=== PATIENT | male | born 1980 ===

== ENCOUNTER 2017-05-23 15:00 | Emergency (ER) | payer OTHER ==
--- NOTE | 2017-05-23 16:57 | C.PDOC ---
History Of Present Illness 36 year old male presents to Emergency Department for evaluation of foreign body in rectum. Patient states he inserted plastic spray bottle in the rectum last night, and the cap of the bottle was left behind while removing the bottle. Denies any other complaints at this time. Time Seen by Provider: 05/23/17 15:40 Chief Complaint (Nursing): GI Problem History Per: Patient History/Exam Limitations: no limitations Onset/Duration Of Symptoms: Days (1) Current Symptoms Are (Timing): Still Present Recent travel outside of the [place]: No Additional History Per: Patient Past Medical History Reviewed: Historical Data, Nursing Documentation, Vital Signs Vital Signs: Last Vital Signs Temp 97.4 F L 05/23/17 18:10 Pulse 72 05/23/17 18:10 Resp 16 05/23/17 18:10 BP 100/76 05/23/17 18:10 Pulse Ox 98 05/23/17 18:10 Family History: States: Unknown Family Hx - Social History Hx Alcohol Use: Yes Hx Substance Use: No - Immunization History Hx Tetanus Toxoid Vaccination: No Hx Influenza Vaccination: No Hx Pneumococcal Vaccination: No Review Of Systems Except As Marked, All Systems Reviewed And Found Negative. Constitutional: Negative for: Fever, Chills Cardiovascular: Negative for: Chest Pain, Palpitations Respiratory: Negative for: Shortness of Breath Gastrointestinal: Positive for: Other (foreign body in rectum). Negative for: Nausea, Vomiting, Abdominal Pain, Diarrhea Neurological: Negative for: Headache, Dizziness Physical Exam - Physical Exam Appears: Non-toxic, No Acute Distress Skin: Normal Color, Warm, Dry Head: Atraumatic, Normacephalic Eye(s): bilateral: Normal Inspection Oral Mucosa: Moist Neck: Normal ROM, Supple Chest: Symmetrical Cardiovascular: Rhythm Regular, No Murmur Respiratory: Normal Breath Sounds, No Rales, No Rhonchi, No Wheezing Gastrointestinal/Abdominal: Soft, No Tenderness Rectal: Rectal Tone (normal), Heme Positive (scant bleeding), No Tenderness, No Other (no foreign body palpated in rectal vault) Extremity: Bilateral: Atraumatic, Normal ROM Neurological/Psych: Oriented x3, Normal Speech Gait: Steady ED Course And Treatment O2 Sat by Pulse Oximetry: 97 (RA) Pulse Ox Interpretation: Normal Medical Decision Making Medical Decision Making: Plan: * Abdomen x-ray Progress note: XRay shows visible air in what is likely plastic cap from spray bottle measuring about [id number]. Case discussed with attending who recommend speaking with surgery. Spoke to Dr Campos who asked when patient ate last and bowel movement. Patient ate today and last bm was yesterday. Dr Campos asked that patient follow up in his office tomorrow at 10AM. He does not need admission at this time. Patient reevaluated and is resting comfortably in no distress. Discussed plan for discharge and instructed patient on follow up. He verbalized understanding. Disposition Discussed With Dr.: Fuentes Campos Doctor Will See Patient In The: Office Counseled Patient/Family Regarding: Diagnosis, Need For Followup - Disposition Referrals: Fuentes Campos MD [Staff Provider] - Disposition: HOME/ ROUTINE Disposition Time: 17:45 Condition: STABLE Additional Instructions: Please follow up with Dr Campos in his office Tomorrow 10am [facility] Por favor, siga con el Dr. Campos en tillman oficina Maana 10 a.m. [facility] Instructions: Rectal Foreign Body (ED) Forms: [employer] (Japanese) Print Language: NEPALESE - POA Present On Arrival: None - Clinical Impression Clinical Impression: Rectal foreign body - PA / JIG MAKER / Resident Statement MD/DO has reviewed & agrees with the documentation as recorded. - Scribe Statement The provider has reviewed the documentation as recorded by the Rakel Tran All medical record entries made by the Rakel were at my direction and personally dictated by me. I have reviewed the chart and agree that the record accurately reflects my personal performance of the history, physical exam, medical decision making, and the department course for this patient. I have also personally directed, reviewed, and agree with the discharge instructions and disposition.
[2017-05-23 18:11] VITALS: BP 100/76; PULSE 72; RESP 16; TEMP 97.4
[2017-05-23 18:48] VITALS: O2SAT 97
--- NOTE | 2017-05-24 09:50 | RAD ---
HISTORY: rectal foreign body COMPARISON: No prior. FINDINGS: BOWEL: There is a nonobstructive bowel gas pattern appreciated. No gross free intrarenal gas evident. No retained radiodense foreign body is identified including at the level of the rectum. There is a short tubular lucency in the upper rectum/distal sigmoid colon which may represent a radiolucent foreign body though this is not clear as this may represent simply gas in the lumen. CT can confirm. No intra-abdominal calcifications are appreciable. BONES: Small exostosis seen related to the lateral side of the right innominate bone. OTHER FINDINGS: None. IMPRESSION: No retained radiodense foreign bodies appreciated throughout the abdomen including the region of the rectum. A E lucency at the upper rectum/distal sigmoid colon may reflect a radiolucent retained foreign body but this is indeterminate given its gas like appearance. Please see discussion above.
== END 2017-05-23 18:10 | disposition home or self-care (01) ==
LOC: C.ER 15:00
DX: T18.5XXA Foreign body in anus and rectum, initial encounter (principal); X58.XXXA Exposure to other specified factors, initial encounter
CPT/HCPCS: 74000; 99284; G0328

== ENCOUNTER 2017-05-24 10:17 | Inpatient (IN) | payer OTHER ==
[2017-05-24] MEDS ORDERED: Sodium Chloride 0.9% 1,000 ML IV ONE (11:13)
[2017-05-24] MEDS ORDERED: Sodium Chloride 0.9% 1,000 ML ONE (11:29)
[2017-05-24 11:43] LABS: EOS # 0.4 K/uL (0.0-0.7); EOS % 3.9 % (0.0-4.0)
--- NOTE | 2017-05-24 11:45 | C.PDOC ---
History Of Present Illness 36 y/o male who was seen here yesterday after inserting an object in his rectum on monday. Patient was instructed to follow up with Dr Guillory this am but now c/o increased abdominal discomfort with no bowel movement prompting ED evaluation. Patient denies fever, chills, nausea, or vomiting. Time Seen by Provider: 05/24/17 10:32 Chief Complaint (Nursing): GI Problem History Per: Patient History/Exam Limitations: no limitations Onset/Duration Of Symptoms: Days (2) Current Symptoms Are (Timing): Still Present Severity: Mild Location Of Pain/Discomfort: Diffuse Quality Of Discomfort: "Pain" Associated Symptoms: denies: Fever, Chills, Nausea, Vomiting Recent travel outside of the [place]: No Additional History Per: Patient Past Medical History Reviewed: Historical Data, Nursing Documentation, Vital Signs Vital Signs: Last Vital Signs Temp 97.9 F 05/24/17 13:06 Pulse 63 05/24/17 13:06 Resp 17 05/24/17 13:06 BP 108/73 05/24/17 13:06 Pulse Ox 99 05/24/17 13:06 - Medical History PMH: No Chronic Diseases Surgical History: No Surg Hx Family History: States: Unknown Family Hx - Social History Hx Alcohol Use: Yes Hx Substance Use: No - Immunization History Hx Tetanus Toxoid Vaccination: No Hx Influenza Vaccination: No Hx Pneumococcal Vaccination: No Review Of Systems Except As Marked, All Systems Reviewed And Found Negative. Constitutional: Negative for: Fever, Chills Gastrointestinal: Positive for: Abdominal Pain, Other (No bowel movement). Negative for: Nausea, Vomiting Physical Exam - Physical Exam Appears: Non-toxic, No Acute Distress Skin: Warm, Dry Head: Atraumatic, Normacephalic Chest: Symmetrical Cardiovascular: Rhythm Regular, No Murmur Respiratory: Normal Breath Sounds, No Rales, No Rhonchi, No Wheezing Gastrointestinal/Abdominal: Soft, Tenderness (Diffuse) Neurological/Psych: Oriented x3, Normal Speech, Normal Cognition Gait: Steady ED Course And Treatment - Laboratory Results Result Diagrams: 05/24/17 17:06 05/24/17 17:06 O2 Sat by Pulse Oximetry: 97 (RA) Pulse Ox Interpretation: Normal Progress Note: Case discussed with Dr Alicea who request admission to [facility] Reassessment Condition: Unchanged - Physician Consult Information Physician Contacted: Fuentes Campos Outcome Of Conversation: admit to [facility] Medical Decision Making Medical Decision Making: Plans: * Blood labs * IV fluids * UA Dr. Campos notified and he will admit patient for [facility] surgery. Disposition Discussed With : Fuentes Campos Doctor Will See Patient In The: Hospital - Disposition Disposition: HOSPITALIZED Disposition Time: 12:00 Condition: STABLE - POA Present On Arrival: None - Clinical Impression Clinical Impression: Rectal foreign body - Scribe Statement The provider has reviewed the documentation as recorded by the Scribe Alexandra woodard All medical record entries made by the Scribe were at my direction and personally dictated by me. I have reviewed the chart and agree that the record accurately reflects my personal performance of the history, physical exam, medical decision making, and the department course for this patient. I have also personally directed, reviewed, and agree with the discharge instructions and disposition.
[2017-05-24 11:46] LABS: URINE BILIRUBIN NEGATIVE (NEGATIVE); URINE BLOOD 1+ (NEGATIVE); URINE COLOR Yellow (YELLOW); URINE GLUCOSE (UA) NORMAL (Normal); URINE KETONE NEGATIVE (NEGATIVE); URINE LEUKOCYTE ESTERASE NEG Leu/uL (Negative); URINE PROTEIN NEGATIVE (NEGATIVE); URINE UROBILINOGEN NORMAL mg/dL (0.2-1.0); WBC URINE < 1 /hpf (0-5)
[2017-05-24 11:48] LABS: BASO % 0.5 % (0.0-2.0); HEMATOCRIT 46.5 % (35.0-51.0); LYMPH # 1.8 K/uL (1.0-4.3); LYMPH % 16.7 % (20.0-40.0); MEAN CELL VOLUME 84.6 fL (80.0-94.0); MEAN CORPUSCULAR HEMOGLOBIN 30.6 pg (27.0-31.0); MEAN CORPUSCULAR HGB CONC 36.2 g/dL (33.0-37.0); MEAN PLATELET VOLUME 9.2 fL (7.2-11.7); MONO # 0.7 K/uL (0.0-0.8); MONO % 6.4 % (0.0-10.0); NRBC % 0.4 % (0.0-2.0); RED CELL DISTRIBUTION WIDTH 13.2 % (11.5-14.5); WHITE BLOOD COUNT 10.7 K/uL (4.8-10.8)
[2017-05-24 11:49] LABS: RBC URINE 1 /hpf (0-3)
[2017-05-24 11:54] LABS: CHLORIDE 101 mmol/L (98-107); POTASSIUM 3.9 mmol/L (3.6-5.2); SODIUM 139 mmol/L (132-148)
[2017-05-24 11:56] LABS: BILIRUBIN,TOTAL 0.6 mg/dL (0.2-1.3); GFR AFRICAN-AMERICAN > 60
[2017-05-24 11:57] LABS: ALB/GLOB RATIO 1.2 (1.0-2.1); ALKALINE PHOSPHATASE 81 U/L (38-126); ALT/SGPT 36 U/L (21-72); AST/SGOT 21 U/L (17-59); BLOOD UREA NITROGEN 10 mg/dL (9-20); CARBON DIOXIDE 25 mmol/L (22-30); GLUCOSE,RANDOM 92 mg/dL (75-110); TOTAL PROTEIN 8.6 g/dL (6.3-8.3)
[2017-05-24 11:58] LABS: CALCIUM 9.5 mg/dl (8.6-10.4)
[2017-05-24] MEDS ORDERED: Midazolam 2 MG/2 ML VIAL ONE ×2 (13:49→16:22)
[2017-05-24] MEDS ORDERED: Lactated Ringer's 1,000 ML IV ONE ×2 (13:50→15:20)
[2017-05-24] MEDS ORDERED: Lidocaine 1% Inj (20ml) ONE (13:56)
[2017-05-24] MEDS ORDERED: ceFAZolin IV 1 gm in Dextrose 1 GM/50 ML BAG IVPB ONE (13:56)
[2017-05-24] MEDS ORDERED: Bupivacaine HCl 0.25% PF (10 ml) Inj ONE (13:56)
[2017-05-24] MEDS ORDERED: metroNIDAZOLE IV 500 mg/100 ml 500 MG/100 ML BAG ONE (14:43)
[2017-05-24] MEDS: HYDROmorphone 0.5 mg/0.5 ml ISec IVP PRN ×5 (16:13→17:40)
[2017-05-24] MEDS ORDERED: HYDROmorphone 0.5 mg/0.5 ml ISec ONE ×2 (16:13→16:17)
[2017-05-24] MEDS ORDERED: Propofol 10 mg/ml Inj (20 ML) ONE (16:22)
[2017-05-24] MEDS: Morphine Monoject Barrel PCA 1mg/ml IV PRN (16:30)
[2017-05-24 17:11] LABS: BASO # 0.1 K/uL (0.0-0.2); BASO % 0.3 % (0.0-2.0); EOS # 0.3 K/uL (0.0-0.7); EOS % 1.6 % (0.0-4.0); HEMATOCRIT 45.6 % (35.0-51.0); LYMPH # 1.9 K/uL (1.0-4.3); MEAN CELL VOLUME 86.2 fL (80.0-94.0); MEAN CORPUSCULAR HEMOGLOBIN 29.5 pg (27.0-31.0); MEAN CORPUSCULAR HGB CONC 34.2 g/dL (33.0-37.0); MEAN PLATELET VOLUME 9.2 fL (7.2-11.7); MONO # 0.8 K/uL (0.0-0.8); MONO % 4.5 % (0.0-10.0); NRBC % 0.2 % (0.0-2.0); RED CELL DISTRIBUTION WIDTH 13.4 % (11.5-14.5)
[2017-05-24 17:18] LABS: WHITE BLOOD COUNT 17.5 K/uL (4.8-10.8)
[2017-05-24 17:28] LABS: CHLORIDE 104 mmol/L (98-107)
[2017-05-24 17:29] LABS: POTASSIUM 4.1 mmol/L (3.6-5.2); SODIUM 137 mmol/L (132-148)
[2017-05-24] MEDS: Dextrose 5%/0.45% NS 1,000 ML IV SCH (17:30)
[2017-05-24 17:31] LABS: ALB/GLOB RATIO 1.7 (1.0-2.1); ALKALINE PHOSPHATASE 80 U/L (38-126); ALT/SGPT 28 U/L (21-72); AST/SGOT 19 U/L (17-59); BILIRUBIN,TOTAL 0.5 mg/dL (0.2-1.3); BLOOD UREA NITROGEN 8 mg/dL (9-20); CARBON DIOXIDE 21 mmol/L (22-30); GFR AFRICAN-AMERICAN > 60; TOTAL PROTEIN 6.3 g/dL (6.3-8.3)
[2017-05-24 17:32] LABS: CALCIUM 8.1 mg/dl (8.6-10.4); GLUCOSE,RANDOM 106 mg/dL (75-110)
[2017-05-24] MEDS: Lactated Ringer's 1,000 ML IV SCH ×2 (18:30→21:18)
--- NOTE | 2017-05-24 19:17 | CP.PCM.CON ---
<Jonathan Mcintyre - Last Filed: 05/24/17 18:55> History of Present Illness - History of Present Illness History of Present Illness: Medicine Consult Note for Dr. Calero We are being consulted for medical management of this patient HPI: Patient is a 36M with no PMH that present to the ED sent from Dr. Hurley office for a foreign body in the rectum. Patient states that on Monday of this week he was drunk off of 4-5 Coron[place] when he stuck a Febreeze bottle in his rectum. The top/cap of the bottle became stuck and he presented to the ED on Monday. The ED examined the patient and sent him home with instructions to follow up with Dr. Campos in the morning. The patient went to Dr. Hurley office and he instructed the patient to return to the ED. The patient was then taken to the operating room. The patient had an exploratory lap with an ostomy. The patient states that this was a stupid thing to do and states he did it because "i dont know" and because he was curious. He has been inserting similar items into his rectum for 2 years but this is the first time it became stuck. He is not sure why he does these things. ROS: * Const: Denies WL * HEENT: History of a broken nose * Lungs: Denies * Heart: denies previous echo or cath * GI: Denies * Renal: denies * : Denies * Breast: Denies * MSK: Denies falls, back pain, RA, ambulates independently * Neuro: denies CVA, seizures, memory or weakness,. numbness. multiple sclerosis , Alzheimer, Myasthenia gravis * Endo: denies thyroid, DM, Adrenal problems * Psych: denies hospitalizations * Skin: Denies * Heme: Denies Easy bruising, anemia, leukemia, histroy of transfusions, clots, anticoagulation disorders * Oncology: denies history of cancer or immune problems * ID: MRSA, C.diff, HIV PMH: None PSH: exlap POD #0, wisdom teeth FH: None SH: 7 pack year history, drinks multiple beers once per weekend, denies illicit drug use Meds: none Allergies: none Review of Systems - Review of Systems All systems: reviewed and no additional remarkable complaints except (per hpi) Past Patient History - Past Medical History & Family History Past Medical History?: No - Past Social History Smoking Status: Light Smoker < 10 Cigarettes Daily - MUSCULOSKELETAL/RHEUMATOLOGICAL Hx Falls: No - PSYCHIATRIC Hx Substance Use: No - SURGICAL HISTORY Hx Surgeries: Yes - ANESTHESIA Hx Anesthesia: Yes Hx Anesthesia Reactions: No Hx Malignant Hyperthermia: No Has any member of the family had a problem w/ anesthesia?: No Meds Allergies/Adverse Reactions: Allergies Allergy/AdvReac Type Severity Reaction Status Date / Time No Known Allergies Allergy Verified 05/23/17 15:34 - Medications Medications: Current Medications Enoxaparin Sodium (Lovenox) 30 mg SC 1000,2200 SOLO Famotidine (Pepcid) 20 mg IVP Q12 SOLO Hydromorphone HCl (Dilaudid) 2 mg IVP Q4H PRN PRN Reason: pain Dextrose/Sodium Chloride (Dextrose 5%/0.45% Ns 1000 Ml) 1,000 mls @ 125 mls/hr IV .Q8H [facility] Last Admin: 05/24/17 17:30 Dose: 0 mls Lactated Ringer's (Lactated Ringer's) 1,000 mls @ 150 mls/hr IV .Q6H40M SOLO Cefazolin Sodium (Ancef) 1 gm in 50 mls @ 100 mls/hr IVPB Q8 SOLO Metronidazole (Flagyl) 250 mg in 50 mls @ 100 mls/hr IVPB Q8H [facility] Stop: 05/29/17 23:01 Morphine Sulfate/Sodium Chloride (Morphine [employer] Monoject Barrel) 30 mg IV Q4H PRN; Protocol PRN Reason: Pain, severe (8-10) Stop: 05/25/17 16:40 Last Admin: 05/24/17 16:30 Dose: 30 mg Ondansetron HCl (Zofran Inj) 4 mg IV Q6 PRN PRN Reason: Nausea/Vomiting Physical Exam - Constitutional Appears: Well, Non-toxic, No Acute Distress - Head Exam Head Exam: ATRAUMATIC, NORMAL INSPECTION, NORMOCEPHALIC - Eye Exam Eye Exam: EOMI Pupil Exam: NORMAL ACCOMODATION - ENT Exam ENT Exam: Mucous Membranes Moist - Respiratory Exam Respiratory Exam: Clear to Auscultation Bilateral, NORMAL BREATHING PATTERN - Cardiovascular Exam Cardiovascular Exam: REGULAR RHYTHM - GI/Abdominal Exam GI & Abdominal Exam: Soft, Tenderness (diffuse tenderness to palpation, midline incision extending from near the xyphoid to the pubis. dressing clean, dry and intact, ostomy is pink and healthy appearing. bright red blood in colostomy bag) . absent: Distended - Extremities Exam Extremities exam: Negative for: joint swelling, tenderness - Back Exam Back exam: absent: CVA tenderness (L), CVA tenderness (R) - Neurological Exam Neurological exam: Alert, Oriented x3 - Psychiatric Exam Psychiatric exam: Normal Affect, Normal Mood - Skin Skin Exam: Dry, Intact, Normal Color, Warm Results - Vital Signs Recent Vital Signs: Last Vital Signs Temp 97.3 F L 05/24/17 18:27 Pulse 70 05/24/17 18:27 Resp 20 05/24/17 18:27 BP 120/76 05/24/17 18:27 Pulse Ox 95 05/24/17 18:27 - Labs Result Diagrams: 05/24/17 17:06 05/24/17 17:06 Labs: Laboratory Results - last 24 hr 05/24/17 05/24/17 05/24/17 11:39 11:39 11:39 WBC 10.7 RBC 5.49 Hgb 16.8 Hct 46.5 MCV 84.6 MCH 30.6 MCHC 36.2 RDW 13.2 Plt Count 300 MPV 9.2 Neut % (Auto) 72.5 Lymph % (Auto) 16.7 L [place] % (Auto) 6.4 Eos % (Auto) 3.9 Baso % (Auto) 0.5 Neut # 7.7 H Lymph # 1.8 Dewey # 0.7 Eos # 0.4 Baso # 0.0 Sodium 139 Potassium 3.9 Chloride 101 Carbon Dioxide 25 Anion Gap 17 BUN 10 Creatinine 0.8 Est GFR ( Amer) > 60 Est GFR (Non-Af Amer) > 60 POC Glucose (mg/dL) Random Glucose 92 Calcium 9.5 Total Bilirubin 0.6 AST 21 ALT 36 Alkaline Phosphatase 81 Total Protein 8.6 H Albumin 4.7 Globulin 3.9 Albumin/Globulin Ratio 1.2 Urine Color Yellow Urine Clarity Clear Urine pH 5.0 Ur Specific [place] 1.013 Urine Protein Negative Urine Glucose (UA) Normal Urine Ketones Negative Urine Blood 1+ H Urine Nitrate Negative Urine Bilirubin Negative Urine Urobilinogen Normal Ur Leukocyte Esterase Neg Urine WBC (Auto) < 1 Urine RBC (Auto) 1 05/24/17 05/24/17 05/24/17 12:17 17:06 17:06 WBC 17.5 H D RBC 5.29 Hgb 15.6 Hct 45.6 MCV 86.2 MCH 29.5 MCHC 34.2 RDW 13.4 Plt Count 265 MPV 9.2 Neut % (Auto) 82.6 H Lymph % (Auto) 11.0 L [place] % (Auto) 4.5 Eos % (Auto) 1.6 Baso % (Auto) 0.3 Neut # 14.4 H Lymph # 1.9 Dewey # 0.8 Eos # 0.3 Baso # 0.1 Sodium 137 Potassium 4.1 Chloride 104 Carbon Dioxide 21 L Anion Gap 16 BUN 8 L Creatinine 0.7 L Est GFR ( Amer) > 60 Est GFR (Non-Af Amer) > 60 POC Glucose (mg/dL) 82 Random Glucose 106 Calcium 8.1 L Total Bilirubin 0.5 AST 19 ALT 28 Alkaline Phosphatase 80 Total Protein 6.3 Albumin 4.0 Globulin 2.4 Albumin/Globulin Ratio 1.7 Urine Color Urine Clarity Urine pH Ur Specific [place] Urine Protein Urine Glucose (UA) Urine Ketones Urine Blood Urine Nitrate Urine Bilirubin Urine Urobilinogen Ur Leukocyte Esterase Urine WBC (Auto) Urine RBC (Auto) Assessment & Plan - Assessment and Plan (Free Text) Assessment: Ex-Lap FB Removal + Ostomy * POD #0 * NPO * Ancef 1g Q8 * Flagyl 250 IV Q8 * Dilaudid 2mg IV Q4 PRN * Morphine TILE CONDUIT LAYER * Psych ([place]) PPX * LR @150 * Zofran 4mg IV Q6 * ambulate * pepcid <Dottie Calero V - Last Filed: 05/24/17 21:10> Meds - Medications Medications: Current Medications Enoxaparin Sodium (Lovenox) 30 mg SC 1000,2200 SOLO Famotidine (Pepcid) 20 mg IVP Q12 SOLO Hydromorphone HCl (Dilaudid) 2 mg IVP Q4H PRN PRN Reason: pain Dextrose/Sodium Chloride (Dextrose 5%/0.45% Ns 1000 Ml) 1,000 mls @ 125 mls/hr IV .Q8H SOLO Last Admin: 05/24/17 17:30 Dose: 0 mls Lactated Ringer's (Lactated Ringer's) 1,000 mls @ 150 mls/hr IV .Q6H40M SOLO Cefazolin Sodium (Ancef) 1 gm in 50 mls @ 100 mls/hr IVPB Q8 SOLO Metronidazole (Flagyl) 250 mg in 50 mls @ 100 mls/hr IVPB Q8H SOLO Stop: 05/29/17 23:01 Morphine Sulfate/Sodium Chloride (Morphine [employer] Monoject Barrel) 30 mg IV Q4H PRN; Protocol PRN Reason: Pain, severe (8-10) Stop: 05/25/17 16:40 Last Admin: 05/24/17 16:30 Dose: 30 mg Ondansetron HCl (Zofran Inj) 4 mg IV Q6 PRN PRN Reason: Nausea/Vomiting Pneumococcal Polyvalent Vaccine (Pneumovax 23 Vaccine) 0.5 ml IM .ONCE ONE Stop: 05/25/17 10:01 Results - Vital Signs Recent Vital Signs: Last Vital Signs Temp 97.3 F L 05/24/17 18:27 Pulse 70 05/24/17 18:27 Resp 20 05/24/17 18:27 BP 120/76 05/24/17 18:27 Pulse Ox 95 05/24/17 18:27 - Labs Result Diagrams: 05/24/17 17:06 05/24/17 17:06 Labs: Laboratory Results - last 24 hr 05/24/17 05/24/17 05/24/17 11:39 11:39 11:39 WBC 10.7 RBC 5.49 Hgb 16.8 Hct 46.5 MCV 84.6 MCH 30.6 MCHC 36.2 RDW 13.2 Plt Count 300 MPV 9.2 Neut % (Auto) 72.5 Lymph % (Auto) 16.7 L [place] % (Auto) 6.4 Eos % (Auto) 3.9 Baso % (Auto) 0.5 Neut # 7.7 H Lymph # 1.8 Dewey # 0.7 Eos # 0.4 Baso # 0.0 Sodium 139 Potassium 3.9 Chloride 101 Carbon Dioxide 25 Anion Gap 17 BUN 10 Creatinine 0.8 Est GFR ( Amer) > 60 Est GFR (Non-Af Amer) > 60 POC Glucose (mg/dL) Random Glucose 92 Calcium 9.5 Total Bilirubin 0.6 AST 21 ALT 36 Alkaline Phosphatase 81 Total Protein 8.6 H Albumin 4.7 Globulin 3.9 Albumin/Globulin Ratio 1.2 Urine Color Yellow Urine Clarity Clear Urine pH 5.0 Ur Specific [place] 1.013 Urine Protein Negative Urine Glucose (UA) Normal Urine Ketones Negative Urine Blood 1+ H Urine Nitrate Negative Urine Bilirubin Negative Urine Urobilinogen Normal Ur Leukocyte Esterase Neg Urine WBC (Auto) < 1 Urine RBC (Auto) 1 05/24/17 05/24/17 05/24/17 12:17 17:06 17:06 WBC 17.5 H D RBC 5.29 Hgb 15.6 Hct 45.6 MCV 86.2 MCH 29.5 MCHC 34.2 RDW 13.4 Plt Count 265 MPV 9.2 Neut % (Auto) 82.6 H Lymph % (Auto) 11.0 L [place] % (Auto) 4.5 Eos % (Auto) 1.6 Baso % (Auto) 0.3 Neut # 14.4 H Lymph # 1.9 Dewey # 0.8 Eos # 0.3 Baso # 0.1 Sodium 137 Potassium 4.1 Chloride 104 Carbon Dioxide 21 L Anion Gap 16 BUN 8 L Creatinine 0.7 L Est GFR ( Amer) > 60 Est GFR (Non-Af Amer) > 60 POC Glucose (mg/dL) 82 Random Glucose 106 Calcium 8.1 L Total Bilirubin 0.5 AST 19 ALT 28 Alkaline Phosphatase 80 Total Protein 6.3 Albumin 4.0 Globulin 2.4 Albumin/Globulin Ratio 1.7 Urine Color Urine Clarity Urine pH Ur Specific [place] Urine Protein Urine Glucose (UA) Urine Ketones Urine Blood Urine Nitrate Urine Bilirubin Urine Urobilinogen Ur Leukocyte Esterase Urine WBC (Auto) Urine RBC (Auto) Attending/Attestation - Attestation I have personally seen and examined this patient.: Yes I have fully participated in the care of the patient.: Yes I have reviewed all pertinent clinical information: Yes Notes (Text): Patient seen, examined and case discussed with day-time resident. patient seen in [facility] [address] around 6:30PM on 05/24/17. Patient is post-operative for exploratory ex-lap ostomy given foreign body insertion (cap of Frebreeze bottle). Patient seen with Morphine TILE CONDUIT LAYER in hand. Patient reports for the past 2 years, he inserts foreign objects in his anus. Patient unable to described why he does this. Patient acklnowledges this is not rational behavior. I inquired to patient if he does this for pleasure or any reason in particular but does not state. Patient reports he does drink once week (usually on Mondays) to get drunk. patient reports he lives with friends but his family is in [place]. patient denies depression, denies SI, denies HI at this time. Patient does not report symptoms of alcohol withdrawal at this time. Patient reports his major complaint is abdominal pain which is expected in light of surgery he is completed earlier today. Medicine is on consult for medical management. Recommended psychiatry consult given abnormal behavior in regards to repeat foreign body insertion, alcohol abuse. Surgery decision making including preoperative/intraoperative and postoperative is per surgery, Dr. Campos. Operative note not yet available at this time. Assessment/Plan 1) Foreign Body Insertion Ex-Lap FB Removal + Ostomy * General surgery (Dr. Campos)-primary and general surgery on the case * Surgery decision making including preoperative/intraoperative and postoperative is per surgery, Dr. Campos. Operative note not yet available at this time. * Anticoagulation per surgery * Pain management per surgery * Orders per surgery include: * POD #0 * NPO * Ancef 1g Q8H (active since 05/24/17) * Flagyl 250 IV Q8H (active since 05/24/17) * Dilaudid 2mg IV Q4 PRN * Morphine TILE CONDUIT LAYER for pain * Dilaudid 2mg IV Q 4H PRN pain * Zofran 4mg IV Q 6hr PRN nausea 2) Alcohol Use; Abnormal Behavior * Ativan PRN for alcohol withdrawal * Psychiatry consult recommended for given repeat foreign body insertion, alcohol use, possible depression * Pastoral care consult 3) Prophylactic care * Orders per surgery include: * POD #0 * NPO * Ancef 1g Q8H (active since 05/24/17) * Flagyl 250 IV Q8H (active since 05/24/17) * Dilaudid 2mg IV Q4 PRN * Morphine TILE CONDUIT LAYER for pain * Dilaudid 2mg IV Q 4H PRN pain * Zofran 4mg IV Q 6hr PRN nausea
[2017-05-24] MEDS: Enoxaparin 30 mg Syringe SC SCH (21:28)
[2017-05-24] MEDS: ceFAZolin 1 gm FROZEN Premix 1 GM/50 ML ML IVPB SCH (21:28)
[2017-05-24] MEDS ORDERED: metroNIDAZOLE IV 500 mg/100 ml 250 MG in Premixed IV 1 EA IVPB SCH (22:00)
[2017-05-24] MEDS: metroNIDAZOLE IV 250mg/50 ml 250 MG/50 ML BAG IVPB SCH (22:19)
--- NOTE | 2017-05-24 22:58 | OP ---
PROCEDURE DATE: 05/24/2017 PREOPERATIVE DIAGNOSIS: Foreign body of the rectosigmoid. POSTOPERATIVE DIAGNOSIS: Foreign body of the rectosigmoid. PROCEDURES PERFORMED: 1. Attempted transrectal removal of foreign body of the rectosigmoid. 2. Exploratory laparotomy, removal of rectosigmoid foreign body with diverting sigmoid colostomy. SURGEON: Dr. Campos. EXPORT MANAGER: Dr. Conteh. TYPE OF ANESTHESIA: General endotracheal. ESTIMATED BLOOD LOSS: 75 mL. POSTOPERATIVE CONDITION: Stable. INDICATIONS FOR SURGERY: A 36-year-old male who presented to emergency room last night with a complaint that he placed a foreign body in his rectum. I received a call from the ER, I was told that the patient had placed a "bottle cap" in his rectum and was in need of treatment. I instructed them to have the patient follow up in my office this morning at 10:00 a.m. for a possible office procedure to remove a "bottle cap" from his rectum. He subsequently presented; however, I was in emergency surgery at the time and asked him to go to the emergency room. He went to the emergency room and since he was in the hospital, he was scheduled to be taken to the operating room to removal under general anesthesia. GROSS FINDINGS: The patient had a aerosol cap which had been placed with the smooth side proximally and sharp edge of the bottle cap distally. As a result, the aerosol bottle cap was not able to be advanced distally so that it can be delivered through the rectum. Upon initial anoscopy, it was found to be near the rectosigmoid; however, I was able to grab one edge with a sponge stick and tried to milk it down so it could be removed through the anus. However, it was wedged in the mucosa and any attempts to move it down resulted cutting from the sharp edges of the mucosa which had coalesced around the edges. Many attempts were made including placing 2 towel clips on the edges, but we were unable to advance it any distance whatsoever. Also, as a result of manipulating it, it kept getting squeezed more proximally until a point it was nearly into the sigmoid colon. At this point, it was felt the safest way to remove it would be through an abdominal wall incision. The patient was re-prepped and draped and the abdomen was entered through a lower midline incision. The bottle cap was felt at the peritoneal reflection with the distal edges of it being just above the peritoneal reflection. Decision was made to "milk the bottle cap" into the sigmoid so that the sigmoid could be opened and then converted into a diverting colostomy through the same incision. This was done and it was fairly easily "milked" proximally to the sigmoid and then, a transverse colotomy was made into sigmoid and the bottle cap was then easily removed. The stool was then cleansed from the edge and the abdomen was irrigated with chlorhexidine gluconate solution; this was followed by saline irrigation. Next, the colotomy was closed with a running 2-0 chromic suture. The sigmoid was further mobilized along its peritoneal attachment so that a diverting colostomy would be easily brought through the abdominal wall. Next, the abdomen was again irrigated with calcium gluconate followed by saline. A longitudinal colostomy incision was made in the left lower quadrant and the sigmoid colon where the colotomy suture was brought through the wound and a colostomy bar was placed beneath it. Final irrigation of the abdomen was carried out and the fascia was closed with a running PDS suture. The overlying skin was closed with robbi. The colostomy was then matured using interrupted 3-0 Monocryl suture into the subcuticular layer of the skin. The patient tolerated the procedure well, returned to recovery room in stable condition. Fuentes Campos MD
[2017-05-25] MEDS: Dextrose 5%/0.45% NS 1,000 ML IV SCH ×3 (02:45→11:27)
[2017-05-25] MEDS: Morphine Monoject Barrel PCA 1mg/ml IV PRN (04:44)
[2017-05-25] MEDS: ceFAZolin 1 gm FROZEN Premix 1 GM/50 ML ML IVPB SCH ×3 (05:43→21:30)
[2017-05-25] MEDS: Lactated Ringer's 1,000 ML IV SCH ×2 (05:54→20:23)
[2017-05-25] MEDS: metroNIDAZOLE IV 250mg/50 ml 250 MG/50 ML BAG IVPB SCH ×3 (06:06→22:54)
--- NOTE | 2017-05-25 09:24 | CP.PCM.PN ---
Subjective - Date & Time of Evaluation Date of Evaluation: 05/25/17 Time of Evaluation: 09:23 - Subjective Subjective: Medicine note for Dr. Calero HPI: Patient seen and examined at bedside. Pain is controlled. No nausea or vomiting. Not passing gas. No BM. No fevers or chills. No other complaints at this time Objective - Vital Signs/Intake and Output Vital Signs (last 24 hours): Temp Pulse Resp BP Pulse Ox 97.8 F 94 H 20 104/65 96 05/25/17 00:00 05/25/17 00:00 05/25/17 00:00 05/25/17 00:00 05/25/17 00:00 Intake and Output: 05/25/17 05/25/17 06:59 18:59 Output Total 700 Balance -700 - Medications Medications: Current Medications Enoxaparin Sodium (Lovenox) 30 mg SC 1000,2200 [facility] Last Admin: 05/24/17 21:28 Dose: 30 mg Famotidine (Pepcid) 20 mg IVP Q12 [facility] Last Admin: 05/24/17 21:28 Dose: 20 mg Hydromorphone HCl (Dilaudid) 2 mg IVP Q4H PRN PRN Reason: pain Last Admin: 05/25/17 02:40 Dose: 2 mg Dextrose/Sodium Chloride (Dextrose 5%/0.45% Ns 1000 Ml) 1,000 mls @ 125 mls/hr IV .Q8H [facility] Last Admin: 05/25/17 02:45 Dose: 125 mls/hr Lactated Ringer's (Lactated Ringer's) 1,000 mls @ 150 mls/hr IV .Q6H40M [facility] Last Admin: 05/25/17 05:54 Dose: Not Given Cefazolin Sodium (Ancef) 1 gm in 50 mls @ 100 mls/hr IVPB Q8 [facility] Last Admin: 05/25/17 05:43 Dose: 100 mls/hr Metronidazole (Flagyl) 250 mg in 50 mls @ 100 mls/hr IVPB Q8H [facility] Stop: 05/29/17 23:01 Last Admin: 05/25/17 06:06 Dose: 100 mls/hr Lorazepam (Ativan) 1 mg IVP Q6H PRN PRN Reason: Symptoms of alcohol withdrawl Morphine Sulfate/Sodium Chloride (Morphine Digital Computer Operator Monoject Barrel) 30 mg IV Q4H PRN; Protocol PRN Reason: Pain, severe (8-10) Stop: 05/25/17 16:40 Last Admin: 05/25/17 04:44 Dose: 30 mg Ondansetron HCl (Zofran Inj) 4 mg IV Q6 PRN PRN Reason: Nausea/Vomiting Pneumococcal Polyvalent Vaccine (Pneumovax 23 Vaccine) 0.5 ml IM .ONCE ONE Stop: 05/25/17 10:01 - Labs Labs: 05/24/17 17:06 05/24/17 17:06 - Skin Additional comments: - Constitutional Appears: Well, Non-toxic, No Acute Distress - Head Exam Head Exam: ATRAUMATIC, NORMAL INSPECTION, NORMOCEPHALIC - Eye Exam Eye Exam: EOMI Pupil Exam: NORMAL ACCOMODATION - ENT Exam ENT Exam: Mucous Membranes Moist - Respiratory Exam Respiratory Exam: Clear to Auscultation Bilateral, NORMAL BREATHING PATTERN - Cardiovascular Exam Cardiovascular Exam: REGULAR RHYTHM - GI/Abdominal Exam GI & Abdominal Exam: Soft, Tenderness (diffuse tenderness to palpation, midline incision extending from near the xyphoid to the pubis. dressing clean, dry and intact, ostomy is pink and healthy appearing. bright red blood in colostomy bag) . absent: Distended - Extremities Exam Extremities exam: Negative for: joint swelling, tenderness - Back Exam Back exam: absent: CVA tenderness (L), CVA tenderness (R) - Neurological Exam Neurological exam: Alert, Oriented x3 - Psychiatric Exam Psychiatric exam: Normal Affect, Normal Mood - Skin Skin Exam: Dry, Intact, Normal Color, Warm Assessment and Plan - Assessment and Plan (Free Text) Assessment: Ex-Lap FB Removal + Ostomy * POD #1 * NPO * Ancef 1g Q8 * Flagyl 250 IV Q8 * Dilaudid 2mg IV Q4 PRN * Morphine ATTRACTIONS ASSOCIATE * Psych ([place]) Alcohol Use, Abnormal Behavior * Ativan 1 IV Q6 PRN for w/d symptoms * Psych ([facility]) PPX * LR @150 * Zofran 4mg IV Q6 * ambulate * pepcid
[2017-05-25] MEDS ORDERED: Influenza Vaccine 60 mcg/0.5 mL SYR (4YR UP) IM ONE (10:00)
[2017-05-25] MEDS ORDERED: Pneumococcal 23-Valent Vaccine IM ONE (10:00)
[2017-05-25] MEDS: Enoxaparin 30 mg Syringe SC SCH ×2 (10:24→22:54)
--- NOTE | 2017-05-25 11:16 | PCM.PSYCH ---
Initial Psychiatric Evaluation - Initial Psychiatric Evaluation Type of Admission: Voluntary Legal Status: Capacity Chief Complaint (in patient's own words): "I'm in pain" History of Present Illness and Precipitating Events: The pt is seen, chart reviewed and case discussed. Consultation was requested for patient's risky behavior. This is a 36-year-old single, [place], male with no children. 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 He is here because of a foreign object in his rectum. He was seen after the procedure and had some pain and does see was a poor historian. He reported that he had done it multiple times in the past including using sex toys with a partner. Other than anxiety related to the incident and current health situation (pain and other complications) he denies other psychiatric symptoms: No suicidal/homicidal ideation, no AVH/delusions, no obsessions/ compulsions and no manic symptoms. He also denies being depressed and states he feels okay. He denies drug use but smokes 10 cigarettes a day and he drinks couple of times a week. He reported that during that incident he was intoxicated. He also denies other risk taking behavior. Past psych history: Denies Medical history: Denies Family psych history: Denies Current Medications: Active Medications Generic Name Dose Route Start Last Admin Trade Name Freq PRN Reason Stop Dose Admin Enoxaparin Sodium 30 mg 05/24/17 22:00 05/25/17 10:24 Lovenox SC 30 mg 1000,2200 [facility] Administration Famotidine 20 mg 05/24/17 22:00 05/25/17 10:24 Pepcid IVP 20 mg Q12 [facility] Administration Hydromorphone HCl 2 mg 05/24/17 15:58 05/25/17 02:40 Dilaudid IVP 2 mg Q4H PRN Administration pain Dextrose/Sodium Chloride 1,000 mls @ 125 mls/hr 05/24/17 16:00 05/25/17 02:45 Dextrose 5%/0.45% Ns 1000 Ml IV 125 mls/hr .Q8H [facility] Administration Lactated Ringer's 1,000 mls @ 150 mls/hr 05/24/17 16:15 05/25/17 05:54 Lactated Ringer's IV Not Given .Q6H40M [facility] Cefazolin Sodium 1 gm in 50 mls @ 100 mls/hr 05/24/17 22:00 05/25/17 05:43 Ancef IVPB 100 mls/hr Q8 [facility] Administration Metronidazole 250 mg in 50 mls @ 100 mls/hr 05/24/17 23:00 05/25/17 06:06 Flagyl IVPB 05/29/17 23:01 100 mls/hr Q8H [facility] Administration Lorazepam 1 mg 05/24/17 21:10 Ativan IVP Q6H PRN Symptoms of alcohol withdrawl Morphine Sulfate/Sodium Chloride 30 mg 05/24/17 16:39 05/25/17 04:44 Morphine Frontend Engineer Monoject Barrel IV 05/25/17 16:40 30 mg Q4H PRN Administration Pain, severe (8-10) Protocol Ondansetron HCl 4 mg 05/24/17 15:58 Zofran Inj IV Q6 PRN Nausea/Vomiting Past Psychiatric History - Past Psychiatric History Previous Treatment History: None Pertinent Medical Hx (Current Medical&Sleep Prob, Allergies): Allergies Allergy/AdvReac Type Severity Reaction Status Date / Time No Known Allergies Allergy Verified 05/23/17 15:34 No Known Home Med 05/23/17 Review of Systems - Neurological Neurological: UNREMARKABLE - Psychiatric Psychiatric: Abnormal Sleep Pattern, Anxiety. absent: Depression, Hallucinations, Homicidal Ideation, Suicidal Ideation Mental Status Examination - Personal Presentation Personal Presentation: Looks stated age - Affect Affect: Constricted - Motor Activity Motor Activity: Calm - Reliability in Providing Information Reliability in Providing Information: Good - Speech Speech: Organized - Mood Mood: Anxious - Formal Thought Process Formal Thought Process: No Impairment - Cognitive Functions Orientation: Person, Place, Situation, Time Sensorium: Alert Attention/Concentration: Attentive Estimate of Intelligence: Average Judgement: Imparied, as evidence by: Poor judgement Memory: Recent intact, as evidence by: Ability to recall events of the day, Remote intact, as evidenced by: Abilit to recall sig. life events - Risk Risk: Diminished functioning - Strength & Assets Inventory Strength & Assets Inventory: Cooperative - Limitations Limitations: Living alone DSM 5 DX - DSM 5 DSM 5 Diagnosis: Adjustment d/o with anxiety Alcohol use d/o - unspecified severity - Recommended/Plan of Treatment Treatment Recommendations and Plan of Treatment: No need for psych meds other than prn's Support and psychoed given How to control risky bhv discussed Please contact psych as needed We will sign off 32 min
--- NOTE | 2017-05-25 13:16 | PN ---
DATE: 05/25/2017 SUBJECTIVE: The patient is resting comfortably in bed. He is one day status post a laparotomy to remove foreign body from his sigmoid colon. A diverting colostomy was then performed with the affected area of the sigmoid. Today, he is resting comfortably in bed. PHYSICAL EXAMINATION: VITAL SIGNS: His temperature is 98.6, pulse rate 89, blood pressure 108/74 and respiratory rate is 20. GENERAL: He is in no acute distress. ABDOMEN: He has a clean, dry dressing. Colostomy has serosanguineous drainage. There were scant absent bowel sounds. LABORATORY DATA: His laboratories today have not been drawn. IMPRESSION: Stable status post laparotomy for a foreign body of the colon. He will continue to have IV fluids and be kept n.p.o. except ice chips until his bowel function returns. He will stay on antibiotics for another 48 hours. Fuentes Campos MD
[2017-05-25 14:54] LABS: BASO % 0.3 % (0.0-2.0); EOS # 0.3 K/uL (0.0-0.7); EOS % 2.4 % (0.0-4.0); HEMATOCRIT 43.2 % (35.0-51.0); LYMPH # 1.8 K/uL (1.0-4.3); LYMPH % 13.1 % (20.0-40.0); MEAN CELL VOLUME 85.8 fL (80.0-94.0); MEAN CORPUSCULAR HEMOGLOBIN 29.6 pg (27.0-31.0); MEAN CORPUSCULAR HGB CONC 34.5 g/dL (33.0-37.0); MEAN PLATELET VOLUME 10.1 fL (7.2-11.7); MONO # 0.7 K/uL (0.0-0.8); MONO % 5.3 % (0.0-10.0); RED CELL DISTRIBUTION WIDTH 13.1 % (11.5-14.5); WHITE BLOOD COUNT 14.1 K/uL (4.8-10.8)
[2017-05-25 15:18] LABS: CHLORIDE 99 mmol/L (98-107); POTASSIUM 3.3 mmol/L (3.6-5.2); SODIUM 131 mmol/L (132-148)
[2017-05-25 15:21] LABS: ALB/GLOB RATIO 1.5 (1.0-2.1); ALKALINE PHOSPHATASE 70 U/L (38-126); ALT/SGPT 35 U/L (21-72); AST/SGOT 36 U/L (17-59); BILIRUBIN,TOTAL 1.1 mg/dL (0.2-1.3); BLOOD UREA NITROGEN 5 mg/dL (9-20); CALCIUM 8.3 mg/dl (8.6-10.4); CARBON DIOXIDE 22 mmol/L (22-30); GFR AFRICAN-AMERICAN > 60; GLUCOSE,RANDOM 80 mg/dL (75-110); TOTAL PROTEIN 6.3 g/dL (6.3-8.3)
[2017-05-25] MEDS: Potassium Ch 20mEq in D5-1/2NS 1,000 ML IV SCH (17:22)
[2017-05-25] MEDS ORDERED: HYDROmorphone 1 mg/ml ISec IVP ONE (20:23)
[2017-05-26] MEDS: Lactated Ringer's 1,000 ML IV SCH ×2 (02:41→20:42)
[2017-05-26] MEDS: Potassium Ch 20mEq in D5-1/2NS 1,000 ML IV SCH ×4 (02:51→15:51)
[2017-05-26] MEDS: ceFAZolin 1 gm FROZEN Premix 1 GM/50 ML ML IVPB SCH ×3 (05:35→21:35)
[2017-05-26] MEDS: metroNIDAZOLE IV 250mg/50 ml 250 MG/50 ML BAG IVPB SCH ×3 (06:25→22:22)
[2017-05-26] MEDS: Enoxaparin 30 mg Syringe SC SCH ×3 (09:42→21:41)
[2017-05-26 14:09] LABS: BASO % 0.2 % (0.0-2.0); EOS # 0.1 K/uL (0.0-0.7); EOS % 1.1 % (0.0-4.0); HEMATOCRIT 41.5 % (35.0-51.0); LYMPH # 1.1 K/uL (1.0-4.3); LYMPH % 9.5 % (20.0-40.0); MEAN CELL VOLUME 85.6 fL (80.0-94.0); MEAN CORPUSCULAR HEMOGLOBIN 30.1 pg (27.0-31.0); MEAN CORPUSCULAR HGB CONC 35.1 g/dL (33.0-37.0); MEAN PLATELET VOLUME 10.1 fL (7.2-11.7); MONO # 0.8 K/uL (0.0-0.8); MONO % 7.1 % (0.0-10.0); PLATELET COUNT 239 K/uL (130-400); RED CELL DISTRIBUTION WIDTH 12.8 % (11.5-14.5); WHITE BLOOD COUNT 11.6 K/uL (4.8-10.8)
[2017-05-26 14:14] LABS: CHLORIDE 100 mmol/L (98-107); POTASSIUM 3.8 mmol/L (3.6-5.2); SODIUM 131 mmol/L (132-148)
[2017-05-26 14:16] LABS: GFR AFRICAN-AMERICAN > 60
[2017-05-26 14:17] LABS: ALKALINE PHOSPHATASE 78 U/L (38-126); ALT/SGPT 34 U/L (21-72); AST/SGOT 42 U/L (17-59); BILIRUBIN,TOTAL 0.7 mg/dL (0.2-1.3); BLOOD UREA NITROGEN 5 mg/dL (9-20); CALCIUM 8.8 mg/dl (8.6-10.4); CARBON DIOXIDE 20 mmol/L (22-30); GLUCOSE,RANDOM 91 mg/dL (75-110); TOTAL PROTEIN 7.6 g/dL (6.3-8.3)
[2017-05-26 14:46] LABS: EOSINOPHIL 2 % (0-4); LARGE PLATELETS PRESENT; NEUTROPHIL 79 % (50-75); REACTIVE LYMPHOCYTES 1 % (0-0); TOTAL CELLS COUNTED 100
--- NOTE | 2017-05-26 21:25 | CP.PCM.PN ---
Subjective - Date & Time of Evaluation Date of Evaluation: 05/26/17 Time of Evaluation: 10:00 - Subjective Subjective: Patient has been seen and examined. No overnight events reported. Patient still has not had bowel movement. Patient has had a slight amount of flatulence. He denies any fever, chills, chest pain, sob, abdominal pain ( except at gastrostomy site) Objective - Vital Signs/Intake and Output Vital Signs (last 24 hours): Temp Pulse Resp BP Pulse Ox 97.9 F 84 20 110/77 97 05/26/17 16:24 05/26/17 16:24 05/26/17 16:24 05/26/17 16:24 05/26/17 16:24 Intake and Output: 05/26/17 05/27/17 18:59 06:59 Intake Total 800 Output Total 800 Balance 0 - Medications Medications: Current Medications Enoxaparin Sodium (Lovenox) 30 mg SC 1000,2200 [facility] Last Admin: 05/26/17 09:42 Dose: 30 mg Famotidine (Pepcid) 20 mg IVP Q12 [facility] Last Admin: 05/26/17 09:43 Dose: 20 mg Hydromorphone HCl (Dilaudid) 2 mg IVP Q4H PRN PRN Reason: pain Last Admin: 05/26/17 17:48 Dose: 2 mg Lactated Ringer's (Lactated Ringer's) 1,000 mls @ 150 mls/hr IV .Q6H40M [facility] Last Admin: 05/26/17 20:42 Dose: Not Given Cefazolin Sodium (Ancef) 1 gm in 50 mls @ 100 mls/hr IVPB Q8 [facility] Last Admin: 05/26/17 14:07 Dose: 100 mls/hr Metronidazole (Flagyl) 250 mg in 50 mls @ 100 mls/hr IVPB Q8H [facility] Stop: 05/29/17 23:01 Last Admin: 05/26/17 14:07 Dose: 100 mls/hr Potassium Chloride/Dextrose/Sod Cl (Potassium Chl 20 Meq In D5-1/2ns) 1,000 mls @ 80 mls/hr IV .[id number] [facility] Last Admin: 05/26/17 15:51 Dose: 80 mls/hr Lorazepam (Ativan) 1 mg IVP Q6H PRN PRN Reason: Symptoms of alcohol withdrawl Ondansetron HCl (Zofran Inj) 4 mg IV Q6 PRN PRN Reason: Nausea/Vomiting - Labs Labs: 05/26/17 13:55 05/26/17 13:55 - Additional Findings Additional findings: - Constitutional Appears: Well, Non-toxic, No Acute Distress - Head Exam Head Exam: ATRAUMATIC, NORMAL INSPECTION, NORMOCEPHALIC - Eye Exam Eye Exam: EOMI Pupil Exam: NORMAL ACCOMODATION - ENT Exam ENT Exam: Mucous Membranes Moist - Respiratory Exam Respiratory Exam: Clear to Auscultation Bilateral, NORMAL BREATHING PATTERN - Cardiovascular Exam Cardiovascular Exam: REGULAR RHYTHM - GI/Abdominal Exam GI & Abdominal Exam: Soft, Tenderness (diffuse tenderness to palpation, midline incision extending from near the xyphoid to the pubis. dressing clean, dry and intact, ostomy is pink and healthy appearing. bright red blood in colostomy bag) . absent: Distended - Extremities Exam Extremities exam: Negative for: joint swelling, tenderness - Back Exam Back exam: absent: CVA tenderness (L), CVA tenderness (R) - Neurological Exam Neurological exam: Alert, Oriented x3 - Psychiatric Exam Psychiatric exam: Normal Affect, Normal Mood - Skin Skin Exam: Dry, Intact, Normal Color, Warm Assessment and Plan - Assessment and Plan (Free Text) Assessment: 36 year old male admitted for removal of foreign body from rectum. Patient had Ex-lap with FB removal and Ostomy. Plan: Ex-Lap FB Removal + Ostomy * POD #2 * NPO * Ancef 1g Q8 * Flagyl 250 IV Q8 * Dilaudid 2mg IV Q4 PRN * Morphine STAPLE FIBER WASHER * Psych ([facility]) Hyponatremia Sodium dropped to 131 within 24 hours Serum and urine osmolality ordered. Urine sodium ordered Will cont. to monitor Alcohol Use, Abnormal Behavior * Ativan 1 IV Q6 PRN for w/d symptoms * Psych ([facility]) PPX * LR @150 * Zofran 4mg IV Q6 * ambulate * pepcid Patient seen and discussed with Attending Lexus Kaufman - PGY1
[2017-05-27] MEDS: Potassium Ch 20mEq in D5-1/2NS 1,000 ML IV SCH ×3 (02:34→21:24)
[2017-05-27] MEDS: ceFAZolin 1 gm FROZEN Premix 1 GM/50 ML ML IVPB SCH ×3 (05:11→21:23)
[2017-05-27] MEDS ORDERED: HYDROmorphone 0.5 mg/0.5 ml ISec IVP PRN ×4 (05:18→13:09)
[2017-05-27] MEDS: Lactated Ringer's 1,000 ML IV SCH (06:36)
[2017-05-27] MEDS: metroNIDAZOLE IV 250mg/50 ml 250 MG/50 ML BAG IVPB SCH ×3 (06:37→22:36)
[2017-05-27 07:17] LABS: BASO % 0.3 % (0.0-2.0); EOS # 0.4 K/uL (0.0-0.7); EOS % 3.8 % (0.0-4.0); HEMATOCRIT 38.9 % (35.0-51.0); LYMPH # 1.1 K/uL (1.0-4.3); LYMPH % 10.9 % (20.0-40.0); MEAN CELL VOLUME 84.9 fL (80.0-94.0); MEAN CORPUSCULAR HEMOGLOBIN 29.7 pg (27.0-31.0); MEAN PLATELET VOLUME 9.4 fL (7.2-11.7); MONO # 0.8 K/uL (0.0-0.8); MONO % 7.2 % (0.0-10.0); RED CELL DISTRIBUTION WIDTH 12.9 % (11.5-14.5); WHITE BLOOD COUNT 10.6 K/uL (4.8-10.8)
[2017-05-27 07:58] LABS: CHLORIDE 100 mmol/L (98-107); POTASSIUM 3.5 mmol/L (3.6-5.2); SODIUM 134 mmol/L (132-148)
[2017-05-27 08:00] LABS: BILIRUBIN,TOTAL 0.8 mg/dL (0.2-1.3); GFR AFRICAN-AMERICAN > 60
[2017-05-27 08:01] LABS: ALB/GLOB RATIO 1.3 (1.0-2.1); ALKALINE PHOSPHATASE 63 U/L (38-126); ALT/SGPT 39 U/L (21-72); AST/SGOT 41 U/L (17-59); BLOOD UREA NITROGEN 6 mg/dL (9-20); CALCIUM 8.3 mg/dl (8.6-10.4); CARBON DIOXIDE 23 mmol/L (22-30); GLUCOSE,RANDOM 105 mg/dL (75-110); TOTAL PROTEIN 6.4 g/dL (6.3-8.3)
[2017-05-27] MEDS: Enoxaparin 30 mg Syringe SC SCH ×2 (09:34→21:23)
--- NOTE | 2017-05-27 09:59 | CP.PCM.PN ---
Subjective - Date & Time of Evaluation Date of Evaluation: 05/27/17 Time of Evaluation: 11:00 - Subjective Subjective: Dr. Cortez note: Patient seen and examined in room. patient complaing of pain and also lack of appetite. He says his pain is not well controlled. Objective - Vital Signs/Intake and Output Vital Signs (last 24 hours): Temp Pulse Resp BP Pulse Ox 97.9 F 86 20 102/66 97 05/26/17 23:14 05/26/17 23:14 05/26/17 23:14 05/26/17 23:14 05/26/17 23:14 Intake and Output: 05/27/17 05/27/17 06:59 18:59 Intake Total 1040 Balance 1040 - Medications Medications: Current Medications Enoxaparin Sodium (Lovenox) 30 mg SC 1000,2200 [facility] Last Admin: 05/27/17 09:34 Dose: 30 mg Famotidine (Pepcid) 20 mg IVP Q12 [facility] Last Admin: 05/27/17 09:34 Dose: 20 mg Hydromorphone HCl (Dilaudid) 2 mg IVP Q4H PRN PRN Reason: pain Lactated Ringer's (Lactated Ringer's) 1,000 mls @ 150 mls/hr IV .Q6H40M [facility] Last Admin: 05/27/17 06:36 Dose: Not Given Cefazolin Sodium (Ancef) 1 gm in 50 mls @ 100 mls/hr IVPB Q8 [facility] Last Admin: 05/27/17 05:11 Dose: 100 mls/hr Metronidazole (Flagyl) 250 mg in 50 mls @ 100 mls/hr IVPB Q8H [facility] Stop: 05/29/17 23:01 Last Admin: 05/27/17 06:37 Dose: 100 mls/hr Potassium Chloride/Dextrose/Sod Cl (Potassium Chl 20 Meq In D5-1/2ns) 1,000 mls @ 80 mls/hr IV .[id number] [facility] Last Admin: 05/27/17 06:43 Dose: 80 mls/hr Lorazepam (Ativan) 1 mg IVP Q6H PRN PRN Reason: Symptoms of alcohol withdrawl Ondansetron HCl (Zofran Inj) 4 mg IV Q6 PRN PRN Reason: Nausea/Vomiting - Labs Labs: 05/27/17 07:03 05/27/17 07:03 - Constitutional Appears: Non-toxic, In Acute Distress - Respiratory Exam Respiratory Exam: Clear to Ausculation Bilateral. absent: Rales, Rhonchi - Cardiovascular Exam Cardiovascular Exam: REGULAR RHYTHM, RRR, +S1, +S2 - GI/Abdominal Exam GI & Abdominal Exam: Normal Bowel Sounds Additional comments: colostomy bag seen - Back Exam Back Exam: absent: CVA tenderness (L), CVA tenderness (R) - Neurological Exam Neurological Exam: Alert Assessment and Plan - Assessment and Plan (Free Text) Assessment: Ex-Lap FB Removal + Ostomy * 05/27: POD #, still NPO, continue Ancef, lowered his pain medication to .5mg Dilauded Q4H for severe pain and .25mg Dilauded q6h for moderate pain, * POD #2 * NPO * Ancef 1g Q8 * Flagyl 250 IV Q8 * Dilaudid 2mg IV Q4 PRN * Morphine SR. MEDIA MANAGER * Psych ([facility]) Hyponatremia 05/27: Most likely secondary to pain Sodium dropped to 131 within 24 hours Serum and urine osmolality ordered. Urine sodium ordered Will cont. to monitor Alcohol Use, Abnormal Behavior * Ativan 1 IV Q6 PRN for w/d symptoms * Psych ([place]) PPX * IV fluids * Zofran 4mg IV Q6 * ambulate * pepcid
[2017-05-27] MEDS: HYDROmorphone 0.5 mg/0.5 ml ISec IVP PRN ×2 (18:26→22:36)
[2017-05-28] MEDS: HYDROmorphone 0.5 mg/0.5 ml ISec IVP PRN ×4 (04:21→21:23)
[2017-05-28] MEDS: ceFAZolin 1 gm FROZEN Premix 1 GM/50 ML ML IVPB SCH ×3 (05:05→21:23)
[2017-05-28] MEDS: metroNIDAZOLE IV 250mg/50 ml 250 MG/50 ML BAG IVPB SCH ×3 (06:36→23:59)
[2017-05-28 08:54] LABS: BASO % 0.4 % (0.0-2.0); EOS # 0.1 K/uL (0.0-0.7); EOS % 1.9 % (0.0-4.0); HEMATOCRIT 41.2 % (35.0-51.0); LYMPH % 14.1 % (20.0-40.0); MEAN CELL VOLUME 84.7 fL (80.0-94.0); MEAN CORPUSCULAR HEMOGLOBIN 30.2 pg (27.0-31.0); MEAN CORPUSCULAR HGB CONC 35.6 g/dL (33.0-37.0); MEAN PLATELET VOLUME 9.8 fL (7.2-11.7); MONO # 0.6 K/uL (0.0-0.8); MONO % 8.2 % (0.0-10.0); NRBC % 0.1 % (0.0-2.0); WHITE BLOOD COUNT 7.3 K/uL (4.8-10.8)
[2017-05-28 09:16] LABS: CHLORIDE 98 mmol/L (98-107); POTASSIUM 3.6 mmol/L (3.6-5.2); SODIUM 133 mmol/L (132-148)
[2017-05-28 09:18] LABS: ALB/GLOB RATIO 1.3 (1.0-2.1); ALKALINE PHOSPHATASE 62 U/L (38-126); AST/SGOT 29 U/L (17-59); BILIRUBIN,TOTAL 0.8 mg/dL (0.2-1.3); BLOOD UREA NITROGEN 8 mg/dL (9-20); CARBON DIOXIDE 24 mmol/L (22-30); GFR AFRICAN-AMERICAN > 60; TOTAL PROTEIN 6.3 g/dL (6.3-8.3)
[2017-05-28 09:19] LABS: ALT/SGPT 37 U/L (21-72); CALCIUM 8.4 mg/dl (8.6-10.4); GLUCOSE,RANDOM 103 mg/dL (75-110)
[2017-05-28] MEDS: Enoxaparin 30 mg Syringe SC SCH ×2 (09:34→21:24)
--- NOTE | 2017-05-28 13:03 | CP.PCM.PN ---
<Dottie Calero V - Last Filed: 05/28/17 16:41> Objective - Vital Signs/Intake and Output Vital Signs (last 24 hours): Temp Pulse Resp BP Pulse Ox 97.8 F 79 20 114/79 98 05/28/17 07:06 05/28/17 07:06 05/28/17 07:06 05/28/17 07:06 05/28/17 07:06 Intake and Output: 05/28/17 05/28/17 06:59 18:59 Intake Total 1060 Output Total 200 500 Balance -200 560 - Medications Medications: Current Medications Enoxaparin Sodium (Lovenox) 30 mg SC 1000,2200 [facility] Last Admin: 05/28/17 09:34 Dose: 30 mg Famotidine (Pepcid) 20 mg IVP Q12 [facility] Last Admin: 05/28/17 09:35 Dose: 20 mg Hydromorphone HCl (Dilaudid) 0.5 mg IVP Q4H PRN PRN Reason: Pain, severe (8-10) Last Admin: 05/28/17 13:56 Dose: 0.5 mg Hydromorphone HCl (Dilaudid) 0.25 mg IVP Q6H PRN PRN Reason: Pain, moderate (4-7) Cefazolin Sodium (Ancef) 1 gm in 50 mls @ 100 mls/hr IVPB Q8 [facility] Last Admin: 05/28/17 13:10 Dose: 100 mls/hr Metronidazole (Flagyl) 250 mg in 50 mls @ 100 mls/hr IVPB Q8H [facility] Stop: 05/29/17 23:01 Last Admin: 05/28/17 14:02 Dose: 100 mls/hr Potassium Chloride/Dextrose/Sod Cl (Potassium Chl 20 Meq In D5-1/2ns) 1,000 mls @ 80 mls/hr IV .[id number] [facility] Last Admin: 05/28/17 14:08 Dose: 80 mls/hr Lorazepam (Ativan) 1 mg IVP Q6H PRN PRN Reason: Symptoms of alcohol withdrawl Ondansetron HCl (Zofran Inj) 4 mg IV Q6 PRN PRN Reason: Nausea/Vomiting Last Admin: 05/27/17 19:22 Dose: 4 mg - Labs Labs: 05/28/17 08:35 05/28/17 08:35 Attending/Attestation - Attestation I have personally seen and examined this patient.: Yes I have fully participated in the care of the patient.: Yes I have reviewed all pertinent clinical information, including history, physical exam and plan: Yes Notes (Text): Patient seen, examined and case discussed with day-time resident. Patient is post-operative for exploratory ex-lap ostomy given foreign body insertion (cap of Frebreeze bottle). . Medicine is on consult for medical management. Recommended psychiatry consult given abnormal behavior in regards to repeat foreign body insertion, alcohol abuse. Surgery decision making including preoperative/intraoperative and postoperative is per surgery, Dr. Campos. Singleton was discontinued on 05/27/17 Nurse, Lu spoke with Dr. Perez given patient's dressing appears to need changing; appears soaked and dirty. patient reports pain is better controlled. Seen ostomy site some trace brownish liquid. Assessment/Plan 1) Foreign Body Insertion Ex-Lap FB Removal + Ostomy * General surgery (Dr. Campos)-primary and general surgery on the case * Surgery decision making including preoperative/intraoperative and postoperative is per surgery, Dr. Campos. Operative note not yet available at this time. * Anticoagulation per surgery * Pain management per surgery * Dressing to be changed 05/28/17 (LIZZ Leigh spoke with Surgery regards to dressing change) * Orders per surgery include: * POD #4 (05/24/17 day of surgery) * Liquid diet 05/27/17 * Ancef 1g Q8H (active since 05/24/17) * Flagyl 250 IV Q8H (active since 05/24/17-) * Zofran 4mg IV Q 6hr PRN nausea * Dilaudid 0.5mg IVP Q 4h PRN severe pain * Dilaudid 0.25mg IVP Q 6H prn moderate pain * Singleton d/c 05/27/17 * Liquid diet 05/27/17 2) Alcohol Use; Abnormal Behavior * Ativan 1mg IV Q6 PRN for alcohol withdrawal * Psychiatry consult * No need for psych meds other than PRNs * Support and psychoed given * How to control risky bhv discussed * signed off 05/25/17 * Pastoral care consult 3) Prophylactic care * Orders per surgery include: * POD #4 * Liquid * Ancef 1g Q8H (active since 05/24/17) * Flagyl 250 IV Q8H (active since 05/24/17) * Dilaudid 0.5mg IVP Q 4h PRN severe pain * Dilaudid 0.25mg IVP Q 6H prn moderate pain * Zofran 4mg IV Q 6hr PRN nausea * Pepcid 20mg IV Q 12h * D51/2NS 20meqKCL 80cc/hr * Lovenox 30mg subq 1000; 2200 <Dax Lopez H - Last Filed: 05/29/17 10:46> Subjective - Date & Time of Evaluation Date of Evaluation: 05/28/17 Time of Evaluation: 09:00 - Subjective Subjective: Dr. Calero note: Patient seen and examined in room. He is complaining of pain that is pulsating in nature. He denies fever, chills, nausea, vomiting, or chest pain. He says he is able to get up in chair. Objective - Vital Signs/Intake and Output Vital Signs (last 24 hours): Temp Pulse Resp BP Pulse Ox 97.8 F 79 20 114/79 98 05/28/17 07:06 05/28/17 07:06 05/28/17 07:06 05/28/17 07:06 05/28/17 07:06 Intake and Output: 05/28/17 05/28/17 06:59 18:59 Output Total 200 Balance -200 - Medications Medications: Current Medications Enoxaparin Sodium (Lovenox) 30 mg SC 1000,2200 [facility] Last Admin: 05/28/17 09:34 Dose: 30 mg Famotidine (Pepcid) 20 mg IVP Q12 [facility] Last Admin: 05/28/17 09:35 Dose: 20 mg Hydromorphone HCl (Dilaudid) 0.5 mg IVP Q4H PRN PRN Reason: Pain, severe (8-10) Last Admin: 05/28/17 09:35 Dose: 0.5 mg Hydromorphone HCl (Dilaudid) 0.25 mg IVP Q6H PRN PRN Reason: Pain, moderate (4-7) Cefazolin Sodium (Ancef) 1 gm in 50 mls @ 100 mls/hr IVPB Q8 [facility] Last Admin: 05/28/17 05:05 Dose: 100 mls/hr Metronidazole (Flagyl) 250 mg in 50 mls @ 100 mls/hr IVPB Q8H [facility] Stop: 05/29/17 23:01 Last Admin: 05/28/17 06:36 Dose: 100 mls/hr Potassium Chloride/Dextrose/Sod Cl (Potassium Chl 20 Meq In D5-1/2ns) 1,000 mls @ 80 mls/hr IV .[id number] [facility] Last Admin: 05/27/17 21:24 Dose: 80 mls/hr Lorazepam (Ativan) 1 mg IVP Q6H PRN PRN Reason: Symptoms of alcohol withdrawl Ondansetron HCl (Zofran Inj) 4 mg IV Q6 PRN PRN Reason: Nausea/Vomiting Last Admin: 05/27/17 19:22 Dose: 4 mg - Labs Labs: 05/28/17 08:35 05/28/17 08:35 - Constitutional Appears: Non-toxic, No Acute Distress - Eye Exam Eye Exam: absent: Scleral icterus - Respiratory Exam Respiratory Exam: Clear to Ausculation Bilateral. absent: Rhonchi, Wheezes - Cardiovascular Exam Cardiovascular Exam: REGULAR RHYTHM - GI/Abdominal Exam GI & Abdominal Exam: Soft, Tenderness, Normal Bowel Sounds Additional comments: colectomy bag seen, dressing has alot of blood over it. - Extremities Exam Extremities Exam: Normal Inspection. absent: Pedal Edema - Back Exam Back Exam: NORMAL INSPECTION - Neurological Exam Neurological Exam: Alert, Oriented x3 - Psychiatric Exam Psychiatric exam: Normal Affect, Normal Mood - Skin Skin Exam: Normal Color, Pallor Assessment and Plan - Assessment and Plan (Free Text) Assessment: Ex-Lap FB Removal + Ostomy * 05/28: POD 4, NPO, IV Ancef and Flagyl, dressing change per Surgery, continue with pain medication. Case discussed with primary medical attending Dr. Calero. Areli discontinued yesterday. 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 05/27: Most likely secondary to pain Sodium dropped to 131 within 24 hours Serum and urine osmolality ordered. Urine sodium ordered Will cont. to monitor Alcohol Use, Abnormal Behavior * Ativan 1 IV Q6 PRN for w/d symptoms * Psych ([facility]) PPX * 05/28: continue current plan * IV fluids * Zofran 4mg IV Q6 * ambulate * pepcid
[2017-05-28] MEDS: Potassium Ch 20mEq in D5-1/2NS 1,000 ML IV SCH (14:08)
[2017-05-29] MEDS: HYDROmorphone 0.5 mg/0.5 ml ISec IVP PRN ×5 (02:18→22:17)
[2017-05-29] MEDS: Potassium Ch 20mEq in D5-1/2NS 1,000 ML IV SCH ×2 (05:38→23:09)
[2017-05-29] MEDS: ceFAZolin 1 gm FROZEN Premix 1 GM/50 ML ML IVPB SCH ×3 (05:38→22:17)
[2017-05-29] MEDS: metroNIDAZOLE IV 250mg/50 ml 250 MG/50 ML BAG IVPB SCH ×3 (06:22→23:08)
[2017-05-29 07:51] LABS: BASO % 0.6 % (0.0-2.0); EOS # 0.5 K/uL (0.0-0.7); EOS % 7.3 % (0.0-4.0); HEMATOCRIT 38.5 % (35.0-51.0); LYMPH # 1.3 K/uL (1.0-4.3); LYMPH % 18.5 % (20.0-40.0); MEAN CORPUSCULAR HEMOGLOBIN 29.8 pg (27.0-31.0); MEAN CORPUSCULAR HGB CONC 35.5 g/dL (33.0-37.0); MEAN PLATELET VOLUME 9.4 fL (7.2-11.7); MONO # 0.7 K/uL (0.0-0.8); MONO % 10.3 % (0.0-10.0); RED CELL DISTRIBUTION WIDTH 12.9 % (11.5-14.5); WHITE BLOOD COUNT 7.1 K/uL (4.8-10.8)
--- NOTE | 2017-05-29 07:52 | CP.PCM.PN ---
<Jonathan Mcintyre - Last Filed: 05/29/17 17:30> Subjective - Date & Time of Evaluation Date of Evaluation: 05/29/17 Time of Evaluation: 07:51 - Subjective Subjective: Medicine Progress Note For Dr. Tran HPI: 36 year old male who is 4 days s/p exploratory laparotomy with removal of foreign body from sigmoid colon and placement of a colostomy. Patient is resting comfortably in no acute distress. Patient states he has mild pain in his abdomen all over. Patient states he feels nauseous and has not been able to eat much, only some jello. Patient denies trouble breathing, chest pain, or leg swelling. Objective - Vital Signs/Intake and Output Vital Signs (last 24 hours): Temp Pulse Resp BP Pulse Ox 97.8 F 60 20 102/64 98 05/28/17 23:25 05/28/17 23:25 05/28/17 23:25 05/28/17 23:25 05/28/17 23:25 Intake and Output: 05/29/17 05/29/17 06:59 18:59 Output Total 1000 Balance -1000 - Medications Medications: Current Medications Enoxaparin Sodium (Lovenox) 30 mg SC 1000,2200 [facility] Last Admin: 05/28/17 21:24 Dose: 30 mg Famotidine (Pepcid) 20 mg IVP Q12 [facility] Last Admin: 05/28/17 21:24 Dose: 20 mg Hydromorphone HCl (Dilaudid) 0.5 mg IVP Q4H PRN PRN Reason: Pain, severe (8-10) Last Admin: 05/29/17 06:38 Dose: 0.5 mg Hydromorphone HCl (Dilaudid) 0.25 mg IVP Q6H PRN PRN Reason: Pain, moderate (4-7) Cefazolin Sodium (Ancef) 1 gm in 50 mls @ 100 mls/hr IVPB Q8 [facility] Last Admin: 05/29/17 05:38 Dose: 100 mls/hr Metronidazole (Flagyl) 250 mg in 50 mls @ 100 mls/hr IVPB Q8H [facility] Stop: 05/29/17 23:01 Last Admin: 05/29/17 06:22 Dose: 100 mls/hr Potassium Chloride/Dextrose/Sod Cl (Potassium Chl 20 Meq In D5-1/2ns) 1,000 mls @ 80 mls/hr IV .[id number] [facility] Last Admin: 05/29/17 05:38 Dose: 80 mls/hr Lorazepam (Ativan) 1 mg IVP Q6H PRN PRN Reason: Symptoms of alcohol withdrawl Ondansetron HCl (Zofran Inj) 4 mg IV Q6 PRN PRN Reason: Nausea/Vomiting Last Admin: 05/27/17 19:22 Dose: 4 mg - Labs Labs: 05/28/17 08:35 05/28/17 08:35 - Additional Findings Additional findings: - Constitutional Appears: Non-toxic, No Acute Distress - Eye Exam Eye Exam: absent: Scleral icterus - Respiratory Exam Respiratory Exam: Clear to Ausculation Bilateral. absent: Rhonchi, Wheezes - Cardiovascular Exam Cardiovascular Exam: REGULAR RHYTHM - GI/Abdominal Exam GI & Abdominal Exam: Soft, Tenderness, Normal Bowel Sounds Additional comments: Colostomy in place. no necrosis. Looks healthy, mild tenderness over incision site. Dressing clean dry and intact - Extremities Exam Extremities Exam: Normal Inspection. absent: Pedal Edema - Back Exam Back Exam: NORMAL INSPECTION - Neurological Exam Neurological Exam: Alert, Oriented x3 - Psychiatric Exam Psychiatric exam: Normal Affect, Normal Mood - Skin Skin Exam: Normal Color, Pallor Assessment and Plan - Assessment and Plan (Free Text) Assessment: Foreign Body Insertion Ex-Lap FB Removal + Ostomy * General surgery ([facility]) * POD #5 * Liquid diet * Ancef 1g Q8H * Flagyl 250 IV Q8H * Zofran 4mg IV Q 6hr PRN * Dilaudid 0.5mg IVP Q 4h PRN severe pain * Dilaudid 0.25mg IVP Q 6H prn moderate pain Alcohol Use; Abnormal Behavior * Ativan 1mg IV Q6 PRN for alcohol withdrawal * Psychiatry consult * No need for psych meds other than PRNs * Support and psychoed given * How to control risky bhv discussed Prophylactic care * Pepcid 20mg IV Q 12h * Lovenox 30mg subq 1000; 2200 <Silvestre Tran - Last Filed: 05/29/17 20:47> Objective - Vital Signs/Intake and Output Vital Signs (last 24 hours): Temp Pulse Resp BP Pulse Ox 97.9 F 71 20 103/67 97 05/29/17 15:00 05/29/17 15:00 05/29/17 15:00 05/29/17 15:00 05/29/17 15:00 Intake and Output: 05/29/17 05/30/17 18:59 06:59 Intake Total 1060 Balance 1060 - Medications Medications: Current Medications Enoxaparin Sodium (Lovenox) 30 mg SC 1000,2200 [facility] Last Admin: 05/29/17 10:05 Dose: 30 mg Famotidine (Pepcid) 20 mg IVP Q12 [facility] Last Admin: 05/29/17 10:05 Dose: 20 mg Hydromorphone HCl (Dilaudid) 0.5 mg IVP Q4H PRN PRN Reason: Pain, severe (8-10) Last Admin: 05/29/17 17:00 Dose: 0.5 mg Hydromorphone HCl (Dilaudid) 0.25 mg IVP Q6H PRN PRN Reason: Pain, moderate (4-7) Cefazolin Sodium (Ancef) 1 gm in 50 mls @ 100 mls/hr IVPB Q8 [facility] Last Admin: 05/29/17 13:15 Dose: 100 mls/hr Metronidazole (Flagyl) 250 mg in 50 mls @ 100 mls/hr IVPB Q8H [facility] Stop: 05/29/17 23:01 Last Admin: 05/29/17 14:29 Dose: 100 mls/hr Lorazepam (Ativan) 1 mg IVP Q6H PRN PRN Reason: Symptoms of alcohol withdrawl Ondansetron HCl (Zofran Inj) 4 mg IV Q6 PRN PRN Reason: Nausea/Vomiting Last Admin: 05/29/17 17:00 Dose: 4 mg - Labs Labs: 05/29/17 07:42 05/29/17 07:42 Attending/Attestation - Attestation I have personally seen and examined this patient.: Yes I have fully participated in the care of the patient.: Yes I have reviewed all pertinent clinical information, including history, physical exam and plan: Yes Notes (Text): 05/29/17 20:41 Patient was seen and examined shortly after resident. Exam, assessment and plan were thoroughly gone over with resident. Also on Exam: Neurology: NO tremors/asterixis noted Also on Assessment and Plan: 1). Hypokalemia: resolved 2). Hyponatremia: resolved 3). Adjustment Disorder with Anxiety: seen by Psychiatry Dr. Mckoy and no medications at this time. I spoke with Coding Assistant Anupama and Colostomy supplies will be delivered to patient's residence by [facility] on 05/30/17. Disposition: patient will need to be cleared for discharge by Primary Physician Dr. Spain. I will reach out to him 05/30/17 for update. Silvestre Tran D.O.
[2017-05-29 08:39] LABS: CHLORIDE 101 mmol/L (98-107)
[2017-05-29 08:40] LABS: POTASSIUM 3.7 mmol/L (3.6-5.2); SODIUM 133 mmol/L (132-148)
[2017-05-29 08:42] LABS: ALB/GLOB RATIO 0.9 (1.0-2.1); AST/SGOT 25 U/L (17-59); BILIRUBIN,TOTAL 0.5 mg/dL (0.2-1.3); BLOOD UREA NITROGEN 7 mg/dL (9-20); CARBON DIOXIDE 23 mmol/L (22-30); GFR AFRICAN-AMERICAN > 60
[2017-05-29 08:43] LABS: ALKALINE PHOSPHATASE 55 U/L (38-126); ALT/SGPT 37 U/L (21-72); CALCIUM 8.7 mg/dl (8.6-10.4); GLUCOSE,RANDOM 90 mg/dL (75-110)
[2017-05-29] MEDS: Enoxaparin 30 mg Syringe SC SCH ×2 (10:05→23:07)
--- NOTE | 2017-05-29 15:08 | PN ---
DATE: 05/29/2017 SUBJECTIVE: The patient today is resting in bed comfortably. He tolerated his clear liquid diet. He states his incisional pain is somewhat less. PHYSICAL EXAMINATION: VITAL SIGNS: His temperature is 97.9, pulse is 61, BP is 93/62. LUNGS: Clear. ABDOMEN: Reveals normal bowel sounds. Colostomy is less edematous, still draining serosanguineous liquid. No gas or stool in the colostomy bag as of yet. IMPRESSION: He has a resolving ileus as he has normoactive bowel sounds today and he is also tolerating clear liquid diet. PLAN: Is to advance with a full liquid diet until he stops to pass stool into his colostomy bag, at which point he will be placed on a regular diet probably discharge. Fuentes Campos MD
[2017-05-30] MEDS: HYDROmorphone 0.5 mg/0.5 ml ISec IVP PRN ×4 (02:58→21:48)
[2017-05-30] MEDS: ceFAZolin 1 gm FROZEN Premix 1 GM/50 ML ML IVPB SCH ×3 (05:49→21:47)
[2017-05-30] MEDS: Enoxaparin 30 mg Syringe SC SCH ×2 (09:39→21:46)
--- NOTE | 2017-05-30 14:55 | CP.PCM.PN ---
<Jonathan Mcintyre - Last Filed: 05/30/17 15:55> Subjective - Date & Time of Evaluation Date of Evaluation: 05/30/17 Time of Evaluation: 14:52 - Subjective Subjective: Medicine Note for Dr. Tran HPI: Patient seen and examined at bedside. Doing well with no complaints at this time. States pain is much resolved. He is passing gas and there is stool in the colostomy. Objective - Vital Signs/Intake and Output Vital Signs (last 24 hours): Temp Pulse Resp BP Pulse Ox 98.1 F 63 20 96/62 L 96 05/30/17 08:00 05/30/17 08:00 05/30/17 08:00 05/30/17 08:00 05/30/17 08:00 Intake and Output: 05/30/17 05/30/17 06:59 18:59 Intake Total 640 Output Total 200 Balance -200 640 - Medications Medications: Current Medications Enoxaparin Sodium (Lovenox) 30 mg SC 1000,2200 [facility] Last Admin: 05/30/17 09:39 Dose: 30 mg Famotidine (Pepcid) 20 mg IVP Q12 [facility] Last Admin: 05/30/17 09:39 Dose: 20 mg Hydromorphone HCl (Dilaudid) 0.5 mg IVP Q4H PRN PRN Reason: Pain, severe (8-10) Last Admin: 05/30/17 13:57 Dose: 0.5 mg Hydromorphone HCl (Dilaudid) 0.25 mg IVP Q6H PRN PRN Reason: Pain, moderate (4-7) Cefazolin Sodium (Ancef) 1 gm in 50 mls @ 100 mls/hr IVPB Q8 [facility] Last Admin: 05/30/17 13:53 Dose: 100 mls/hr Metronidazole 250 mg/ (Miscellaneous) 50 mls @ 100 mls/hr IVPB Q8 [facility] Lorazepam (Ativan) 1 mg IVP Q6H PRN PRN Reason: Symptoms of alcohol withdrawl Ondansetron HCl (Zofran Inj) 4 mg IV Q6 PRN PRN Reason: Nausea/Vomiting Last Admin: 05/29/17 17:00 Dose: 4 mg - Labs Labs: 05/29/17 07:42 05/29/17 07:42 - Constitutional Appears: Well, Non-toxic, No Acute Distress - Head Exam Head Exam: ATRAUMATIC, NORMAL INSPECTION, NORMOCEPHALIC - Eye Exam Eye Exam: EOMI Pupil Exam: NORMAL ACCOMODATION - ENT Exam ENT Exam: Mucous Membranes Moist - Respiratory Exam Respiratory Exam: Clear to Ausculation Bilateral, NORMAL BREATHING PATTERN - GI/Abdominal Exam GI & Abdominal Exam: Soft, Tenderness (mild tenderness over incision site3), Normal Bowel Sounds. absent: Distended Additional comments: colostom looks healthy. stool in colostomy bag. ostomy looks healthy. - Extremities Exam Extremities Exam: absent: Joint Swelling, Tenderness - Neurological Exam Neurological Exam: Alert, Awake, Oriented x3 - Psychiatric Exam Psychiatric exam: Normal Affect, Normal Mood - Skin Skin Exam: Dry, Intact, Normal Color, Warm Assessment and Plan - Assessment and Plan (Free Text) Assessment: Foreign Body Insertion Ex-Lap FB Removal + Ostomy * General surgery ([facility]) * POD #5 * Liquid diet - advance diet in the morning * Ancef 1g Q8H * Flagyl 250 IV Q8H * Zofran 4mg IV Q 6hr PRN * Dilaudid 0.5mg IVP Q 4h PRN severe pain * Dilaudid 0.25mg IVP Q 6H prn moderate pain Alcohol Use; Abnormal Behavior * Ativan 1mg IV Q6 PRN for alcohol withdrawal * Psychiatry consult * No need for psych meds other than PRNs * Support and psychoed given * How to control risky bhv discussed Prophylactic care * Pepcid 20mg IV Q 12h * Lovenox 30mg subq 1000; 2200 <Silvestre Tran - Last Filed: 05/30/17 20:20> Objective - Vital Signs/Intake and Output Vital Signs (last 24 hours): Temp Pulse Resp BP Pulse Ox 98.1 F 63 20 96/62 L 96 05/30/17 08:00 05/30/17 08:00 05/30/17 08:00 05/30/17 08:00 05/30/17 08:00 Intake and Output: 05/30/17 05/31/17 18:59 06:59 Intake Total 1640 Output Total 0 Balance 1640 - Medications Medications: Current Medications Docusate Sodium (Colace) 100 mg PO BID [facility] Enoxaparin Sodium (Lovenox) 30 mg SC 1000,2200 [facility] Last Admin: 05/30/17 09:39 Dose: 30 mg Famotidine (Pepcid) 20 mg IVP Q12 [facility] Last Admin: 05/30/17 09:39 Dose: 20 mg Hydromorphone HCl (Dilaudid) 0.5 mg IVP Q4H PRN PRN Reason: Pain, severe (8-10) Last Admin: 05/30/17 13:57 Dose: 0.5 mg Hydromorphone HCl (Dilaudid) 0.25 mg IVP Q6H PRN PRN Reason: Pain, moderate (4-7) Cefazolin Sodium (Ancef) 1 gm in 50 mls @ 100 mls/hr IVPB Q8 [facility] Last Admin: 05/30/17 13:53 Dose: 100 mls/hr Metronidazole 250 mg/ (Miscellaneous) 50 mls @ 100 mls/hr IVPB Q8 [facility] Last Admin: 05/30/17 17:18 Dose: 100 mls/hr Lorazepam (Ativan) 1 mg IVP Q6H PRN PRN Reason: Symptoms of alcohol withdrawl Ondansetron HCl (Zofran Inj) 4 mg IV Q6 PRN PRN Reason: Nausea/Vomiting Last Admin: 05/29/17 17:00 Dose: 4 mg - Labs Labs: 05/29/17 07:42 05/29/17 07:42 Attending/Attestation - Attestation I have personally seen and examined this patient.: Yes I have fully participated in the care of the patient.: Yes I have reviewed all pertinent clinical information, including history, physical exam and plan: Yes Notes (Text): 05/30/17 20:14 Patient was seen and examined 2:45 PM 05/30/17 560A Exam, assessment and plan were thoroughly gone over with resident. Also upon ROS: Tolerating his clear liquid diet with NO n/v Has not noticed any stool in colostomy bag (however above resident noted a small amount at the time of his exam) Stated that he had difficulty urinating and pain at the colostomy site when he pushed to urinate (bladder scan was performed and there was only 20 ml urine bladder after voiding, also noted full container of urine at bedside at the time of my exam) Also on Exam: Neurology: NO tremors/asterixis noted Abdomen: Midline surgical incision with intact robbi, NO wound dehiscence, and NO surrounding signs of celllulitis (it was revealed by the patient that during the night the colostomy bag had leaked onto his bandage and this was changed and cleaned by overnight nurse) Also on Assessment and Plan: 1). Hypokalemia: resolved 2). Hyponatremia: resolved 3). Adjustment Disorder with Anxiety: seen by Psychiatry Dr. Mckoy and no medications at this time. As there was some stool noted in colostomy bag and some air, his diet was advanced to Soft Chopped for dinner and if no issues then will advance to Regular 05/31/17. I spoke with Surgeon Dr. Campos and updated him. I spoke with Public Health Staff Nurse Anupama and she will confirm that the Colostomy supplies were delivered to patient's residence by [facility] on 05/30/17 and she will confirm that the [facility] Insurance paperwork was completed. Disposition: patient will need to be cleared for discharge by Primary Physician Dr. Spain. Silvestre Tran D.O.
[2017-05-30] MEDS: metroNIDAZOLE IV 500 mg/100 ml 250 MG in Premixed IV 1 EA IVPB SCH ×2 (17:18→21:47)
--- NOTE | 2017-05-30 21:37 | PN ---
DATE: 05/30/2017 SUBJECTIVE: The patient is resting comfortably in bed, minimal pain today. He is tolerating a soft diet well. PHYSICAL EXAMINATION: VITAL SIGNS: Temperature is 98.1, pulse is 63, blood pressure is 96/62. ABDOMEN: Soft, scaphoid, positive bowel sounds. There was gas in the colostomy bag. No stool. The incision is healing. LABORATORY DATA: His laboratories were reviewed and were within normal limits. IMPRESSION AND PLAN: He has resolving ileus status post a diverting colostomy for foreign body of the rectum and removal of foreign body. He will be advanced to a regular diet tomorrow morning, and if he tolerates regular diet also at lunch, he will be discharged in the evening as long as he remains afebrile and stable. He will follow up in the office with me in one week. He will be given colostomy products and advised to take Tylenol for pain. He will also be put on Colace 100 mg b.i.d. Fuentes Campos MD
[2017-05-31] MEDS: HYDROmorphone 0.5 mg/0.5 ml ISec IVP PRN ×3 (04:37→16:20)
[2017-05-31] MEDS: ceFAZolin 1 gm FROZEN Premix 1 GM/50 ML ML IVPB SCH (05:26)
[2017-05-31] MEDS: metroNIDAZOLE IV 500 mg/100 ml 250 MG in Premixed IV 1 EA IVPB SCH ×2 (06:43→13:57)
--- NOTE | 2017-05-31 06:58 | CP.PCM.PN ---
<Jonathan Mcintyre - Last Filed: 05/31/17 15:43> Subjective - Date & Time of Evaluation Date of Evaluation: 05/31/17 Time of Evaluation: 06:57 - Subjective Subjective: Medicine Progress Note for Dr. Tran HPI:Patient seen and examined at bedside. Doing well with no complaints at this time. Denies Nausea or vomiting. ambulating without difficultly. Using ICS at bedside. Passing stool and gas. Pain is well controlled. Tolerating diet. Objective - Vital Signs/Intake and Output Vital Signs (last 24 hours): Temp Pulse Resp BP Pulse Ox 98.4 F 67 20 100/64 97 05/30/17 23:05 05/30/17 23:05 05/30/17 23:05 05/30/17 23:05 05/30/17 23:05 Intake and Output: 05/30/17 05/31/17 18:59 06:59 Intake Total 1640 1090 Output Total 0 0 Balance 1640 1090 - Medications Medications: Current Medications Docusate Sodium (Colace) 100 mg PO BID [facility] Last Admin: 05/30/17 18:47 Dose: 100 mg Enoxaparin Sodium (Lovenox) 30 mg SC 1000,2200 [facility] Last Admin: 05/30/17 21:46 Dose: 30 mg Famotidine (Pepcid) 20 mg IVP Q12 [facility] Last Admin: 05/30/17 21:47 Dose: 20 mg Hydromorphone HCl (Dilaudid) 0.5 mg IVP Q4H PRN PRN Reason: Pain, severe (8-10) Last Admin: 05/31/17 04:37 Dose: 0.5 mg Hydromorphone HCl (Dilaudid) 0.25 mg IVP Q6H PRN PRN Reason: Pain, moderate (4-7) Cefazolin Sodium (Ancef) 1 gm in 50 mls @ 100 mls/hr IVPB Q8 [facility] Last Admin: 05/31/17 05:26 Dose: 100 mls/hr Metronidazole 250 mg/ (Miscellaneous) 50 mls @ 100 mls/hr IVPB Q8 [facility] Last Admin: 05/31/17 06:43 Dose: 100 mls/hr Lorazepam (Ativan) 1 mg IVP Q6H PRN PRN Reason: Symptoms of alcohol withdrawl Ondansetron HCl (Zofran Inj) 4 mg IV Q6 PRN PRN Reason: Nausea/Vomiting Last Admin: 05/29/17 17:00 Dose: 4 mg - Labs Labs: 05/29/17 07:42 05/29/17 07:42 - Additional Findings Additional findings: - Constitutional Appears: Well, Non-toxic, No Acute Distress - Head Exam Head Exam: ATRAUMATIC, NORMAL INSPECTION, NORMOCEPHALIC - Eye Exam Eye Exam: EOMI Pupil Exam: NORMAL ACCOMODATION - ENT Exam ENT Exam: Mucous Membranes Moist - Respiratory Exam Respiratory Exam: Clear to Ausculation Bilateral, NORMAL BREATHING PATTERN - GI/Abdominal Exam GI & Abdominal Exam: Soft, Tenderness (mild tenderness over incision site3), Normal Bowel Sounds. absent: Distended Additional comments: colostom looks healthy. stool in colostomy bag. ostomy looks healthy. - Extremities Exam Extremities Exam: absent: Joint Swelling, Tenderness - Neurological Exam Neurological Exam: Alert, Awake, Oriented x3 - Psychiatric Exam Psychiatric exam: Normal Affect, Normal Mood - Skin Skin Exam: Dry, Intact, Normal Color, Warm Assessment and Plan - Assessment and Plan (Free Text) Assessment: Foreign Body Insertion Ex-Lap FB Removal + Ostomy * General surgery ([facility]) * POD #6 * Regular Diet * Ancef 1g Q8H * Flagyl 250 IV Q8H * Zofran 4mg IV Q 6hr PRN * Dilaudid 0.5mg IVP Q 4h PRN severe pain * Dilaudid 0.25mg IVP Q 6H prn moderate pain Alcohol Use; Abnormal Behavior * Ativan 1mg IV Q6 PRN for alcohol withdrawal * Psychiatry consult * No need for psych meds other than PRNs * Support and psychoed given * How to control risky bhv discussed Prophylactic care * Pepcid 20mg IV Q 12h * Lovenox 30mg subq 1000; 2200 Plan: We are signing off. Please reconsult as needed. Thank you for this consult. Our Recommendations are as follows: * Colostomy supplies have been delivered to patients home. We have confirmed delivery with [employer] for Deliver of the supplies * Patient is to follow up in our clinic in 7-10 days because he does not have a primary care doctor. We was provided him with hand written instructions regarding information about the clinic. * We advise he takes extra strength Tylenol every 6 hours by mouth as needed for pain. The patient does not need narcotics and has been advised regarding their addictive potential. * Patient should follow up with Dr. Campos in his office as directed by Dr. Campos * Patient should return to the ER if he develops fever, chills or shortness of breath or the absence of stool production in the colostomy bag after eating. * Thank you again for this consult. <Silvestre Tran - Last Filed: 05/31/17 19:55> Objective - Vital Signs/Intake and Output Vital Signs (last 24 hours): Temp Pulse Resp BP Pulse Ox 97.9 F 66 18 112/73 98 05/31/17 15:32 05/31/17 15:32 05/31/17 15:32 05/31/17 15:32 05/31/17 15:32 Intake and Output: 05/31/17 06/01/17 18:59 06:59 Output Total 100 Balance -100 - Labs Labs: 05/29/17 07:42 05/29/17 07:42 Attending/Attestation - Attestation I have personally seen and examined this patient.: Yes I have fully participated in the care of the patient.: Yes I have reviewed all pertinent clinical information, including history, physical exam and plan: Yes Notes (Text): 05/31/17 19:54 Patient was seen and examined shortly after resident. Exam, Assessment and Plan and discharge instructions were thoroughly gone over with the resident. Dr. Campos was informed of Medicine Team Plan via text. Silvestre Tran D.O.
[2017-05-31 08:51] VITALS: RESP 18; O2SAT 98
[2017-05-31] MEDS: Enoxaparin 30 mg Syringe SC SCH (10:24)
[2017-05-31 15:33] VITALS: BP 112/73; PULSE 66; TEMP 97.9
--- NOTE | 2017-05-31 21:11 | PCM.PYCHPN ---
Psychiatric Progress Note - Psychiatric Progress Note Patient seen today, length of contact: 15 min Patient Chief Complaint: "I'm better" Problems Identified/Issues Discussed: He is seen, chart reviewed c/o mild sleep problems How to stop risky bhv discussed again with good results Support and psychoed given No acute psych issues Medication Change: No Medical Record Reviewed: Yes Mental Status Examination - Cognitive Function Orientation: Person, Place, Situation, Time Memory: Intact Attention: WNL Concentration: Poor Association: WNL Fund of Knowledge: WNL - Mood Mood: Anxious - Affect Affect: Constricted - Speech Speech: Appropriate - Formal Thought Process Formal Thought Process: No Impairment - Suicidal Ideation Suicidal Ideation: No - Homicidal Ideation Homicidal Ideation: No Goal/Treatment Plan - Goal/Treatment Plan Progress Toward Problem(s) and Goals/Treatment Plan: No need for psych meds other than prn's Support and psychoed given How to control risky bhv discussed again Please contact psych as needed We will sign off again
== END 2017-05-31 19:34 | disposition home or self-care (01) | DRG 148 ==
LOC: C.ER 10:17 → C.SDS 12:01 → C.9S 15:59 → C.5S 18:19 → C.6T 05-30 22:36
PROVIDERS: ADMIT Family Medicine; ATTEND Family Medicine
PROC: 0DCN0ZZ Extirpation of Matter from Sigmoid Colon, Open Approach (ICD-10-PCS; principal; 2017-05-24 13:50)
PROC: 0D1N0Z4 Bypass Sigmoid Colon to Cutaneous, Open Approach (ICD-10-PCS; 2017-05-24 13:50)
DX: T18.5XXA Foreign body in anus and rectum, initial encounter (principal); E87.1 Hypo-osmolality and hyponatremia; F10.230 Alcohol dependence with withdrawal, uncomplicated; E87.6 Hypokalemia; K56.7 Ileus, unspecified; Y90.9 Presence of alcohol in blood, level not specified; F43.22 Adjustment disorder with anxiety

== ENCOUNTER 2017-07-12 08:00 | Inpatient (IN) | payer OTHER ==
[2017-07-07 08:53] VITALS: BMI 21.9
[2017-07-17] MEDS ORDERED: Bupivacaine-Epi 0.5%-1:200,000 PF Inj IJ ONE (07:38)
[2017-07-17] MEDS ORDERED: Lidocaine 1% Inj (20ml) ONE (07:39)
[2017-07-17] MEDS ORDERED: Midazolam 2 MG/2 ML VIAL ONE (07:47)
[2017-07-17] MEDS ORDERED: Propofol 10 mg/ml Inj (20 ML) ONE ×2 (07:47→11:09)
[2017-07-17] MEDS ORDERED: Lactated Ringer's 1,000 ML IV ONE ×4 (07:57→12:08)
[2017-07-17] MEDS: ceFAZolin IV 2 gm in Dextrose 2 GM/50 ML BAG IVPB ONE ×2 (07:57→08:50)
[2017-07-17] MEDS: metroNIDAZOLE IV 500 mg/100 ml 500 MG/100 ML BAG ONE ×2 (07:58→09:00)
[2017-07-17] MEDS ORDERED: Bupivacaine HCl 0.5% PF (10 ml) Inj ONE (08:19)
[2017-07-17] MEDS ORDERED: BUPIVACAINE 0.125%/0.9% NACL 600 ML IJ ONE (10:39)
[2017-07-17] MEDS ORDERED: Morphine 4 MG/ML VIAL ONE (11:08)
--- NOTE | 2017-07-17 12:09 | PCM.SURG1 ---
Surgeon's Initial Post Op Note - Surgeon's Notes Surgeon: Dr. Vega Press Assistant And Feeder: Brittanie Etienne PGY1 Type of Anesthesia: General Endo, Local Pre-Operative Diagnosis: Colostomy Operative Findings: See Operative Report Post-Operative Diagnosis: Colostomy reversal with End-to-End anastamosis Operation Performed: Colostomy Reversal with End-to-End Anastamosis; Segmental colectomy; Extensive Lysis of Adhesions Specimen/Specimens Removed: Segmental Colon with donuts Estimated Blood Loss: EBL {In ML}: 100 Blood Products Given: N/A Drains Used: Jaswinder Post-Op Condition: Good Date of Surgery/Procedure: 07/17/17 Time of Surgery/Procedure: 12:10
[2017-07-17] MEDS ORDERED: HYDROmorphone 0.5 mg/0.5 ml ISec IVP PRN (12:11)
[2017-07-17] MEDS ORDERED: Lactated Ringer's 1,000 ML IV SCH (12:15)
[2017-07-17] MEDS: HYDROmorphone 0.5 mg/0.5 ml ISec IVP PRN ×4 (12:21→13:07)
[2017-07-17] MEDS: Piperacill/Tazo 3.375gm in Dex 3.375 GM/50 ML BAG IVPB SCH ×2 (13:00→19:24)
[2017-07-18] MEDS: Piperacill/Tazo 3.375gm in Dex 3.375 GM/50 ML BAG IVPB SCH ×4 (01:27→18:52)
--- NOTE | 2017-07-18 07:56 | CP.PCM.PN ---
<Abdi Tirado Kimberly - Last Filed: 07/18/17 07:51> Subjective - Date & Time of Evaluation Date of Evaluation: 07/18/17 Time of Evaluation: 07:51 - Subjective Subjective: Gen Surg: Dr Vega Pt S&E. Doing well. Overnight holland was removed. Pt subsequently voided 300cc. Pt reports was having hallucinations after getting dilaudid last night. This medication has now been discontinued and he is getting morphine for pain. Denies any f/c, n/v, sob or chest pain. Objective - Vital Signs/Intake and Output Vital Signs (last 24 hours): Temp Pulse Resp BP Pulse Ox 97.8 F 84 20 106/66 97 07/18/17 01:41 07/18/17 02:39 07/18/17 01:41 07/18/17 02:39 07/18/17 01:41 Intake and Output: 07/18/17 07/18/17 06:59 18:59 Intake Total 850 Output Total 1994 Balance -1145 - Medications Medications: Current Medications BUPIVACAINE 0.125%/0.9% NACL (Bupivacaine-Ns 0.125% On-Q Service Cleaner) 600 mls @ 4 mls/ hr IJ ONCE ONE Stop: 07/23/17 16:38 Last Admin: 07/17/17 12:20 Dose: 0 mls Piperacillin Sod/Tazobactam Sod (Zosyn 3.375 Gm Iv Premix) 3.375 gm in 50 mls @ 100 mls/hr IVPB Q6H [facility] Last Admin: 07/18/17 06:09 Dose: 100 mls/hr Lactated Ringer's (Lactated Ringer's) 1,000 mls @ 100 mls/hr IV .Q10H [facility] Morphine Sulfate (Morphine) 4 mg IVP Q4 PRN PRN Reason: Pain, moderate (4-7) Ondansetron HCl (Zofran Inj) 4 mg IVP Q6 PRN PRN Reason: Nausea/Vomiting - Constitutional Appears: Non-toxic - Head Exam Head Exam: NORMOCEPHALIC - Eye Exam Eye Exam: Normal appearance - ENT Exam ENT Exam: Mucous Membranes Dry - Respiratory Exam Respiratory Exam: absent: Accessory Muscle Use, Respiratory Distress - Cardiovascular Exam Cardiovascular Exam: absent: Tachycardia - GI/Abdominal Exam GI & Abdominal Exam: Soft, Tenderness (post-op and appropriate). absent: Distended, Firm, Guarding, Rigid - Extremities Exam Extremities Exam: absent: Pedal Edema - Neurological Exam Neurological Exam: Alert, Awake, Oriented x3 Assessment and Plan - Assessment and Plan (Free Text) Assessment: 36M s/p colostomy reversal POD#1 Plan: cont abx cont morphine for pain cont NGT to LIS OOB and ambulate will start DVT prophylaxis d/w Dr Silvia Tirado, PGY3 <Jeremiah Vega B - Last Filed: 07/20/17 09:10> Objective - Vital Signs/Intake and Output Vital Signs (last 24 hours): Temp Pulse Resp BP Pulse Ox 99.1 F 89 20 105/72 96 07/20/17 08:24 07/20/17 08:24 07/20/17 08:24 07/20/17 08:24 07/20/17 08:24 Intake and Output: 07/20/17 07/20/17 06:59 18:59 Intake Total 2118 Output Total 425 Balance 1693 - Medications Medications: Current Medications Piperacillin Sod/Tazobactam Sod (Zosyn 3.375 Gm Iv Premix) 3.375 gm in 50 mls @ 100 mls/hr IVPB Q6H [facility] Last Admin: 07/20/17 07:58 Dose: 100 mls/hr Potassium Chloride/Dextrose/Sod Cl (Potassium Chl 20 Meq In D5-1/2ns) 1,000 mls @ 125 mls/hr IV .Q8H [facility] Last Admin: 07/20/17 06:21 Dose: 125 mls/hr BUPIVACAINE 0.125%/0.9% NACL (Bupivacaine-Ns 0.125% On-Q Service Cleaner) 600 mls @ 4 mls/ hr IJ ONCE ONE Stop: 07/26/17 14:29 Ketorolac Tromethamine (Toradol) 30 mg IVP Q6 [facility] Stop: 07/22/17 06:01 Morphine Sulfate (Morphine) 2 mg IVP Q4 PRN PRN Reason: Pain, severe (8-10) Last Admin: 07/20/17 07:06 Dose: 2 mg Morphine Sulfate (Morphine) 2 mg IVP Q4 PRN PRN Reason: Pain, moderate (4-7) Ondansetron HCl (Zofran Inj) 4 mg IVP Q6 PRN PRN Reason: Nausea/Vomiting - Labs Labs: 07/19/17 09:13 07/19/17 09:13 Attending/Attestation - Attestation I have personally seen and examined this patient.: Yes I have fully participated in the care of the patient.: Yes I have reviewed all pertinent clinical information, including history, physical exam and plan: Yes Notes (Text): Pt was seen and examined at bedside Agree with above note and assessment OOB to walk DC NG DC holland DVT prophylaxis C/w IV antibiotic for intra abdominal contamination Plan d.w pt in detail.
[2017-07-18 08:41] LABS: HEMATOCRIT 37.1 % (35.0-51.0); MEAN CORPUSCULAR HEMOGLOBIN 29.5 pg (27.0-31.0); MEAN CORPUSCULAR HGB CONC 35.9 g/dL (33.0-37.0); MEAN PLATELET VOLUME 9.7 fL (7.2-11.7); RED CELL DISTRIBUTION WIDTH 13.1 % (11.5-14.5)
[2017-07-18 08:44] LABS: MEAN CELL VOLUME 82.2 fL (80.0-94.0); WHITE BLOOD COUNT 16.4 K/uL (4.8-10.8)
[2017-07-18] MEDS ORDERED: Sodium Chloride 0.9% 1,000 ML IV SCH (08:45)
[2017-07-18 08:51] LABS: ALKALINE PHOSPHATASE 79 U/L (38-126); ALT/SGPT 81 U/L (21-72); AST/SGOT 39 U/L (17-59); BILIRUBIN,TOTAL 0.9 mg/dL (0.2-1.3); BLOOD UREA NITROGEN 9 mg/dL (9-20); CALCIUM 8.4 mg/dl (8.6-10.4); CARBON DIOXIDE 27 mmol/L (22-30); CHLORIDE 96 mmol/L (98-107); GFR AFRICAN-AMERICAN > 60; GLUCOSE,RANDOM 124 mg/dL (75-110); POTASSIUM 3.5 mmol/L (3.6-5.2); SODIUM 134 mmol/L (132-148); TOTAL PROTEIN 7.5 g/dL (6.3-8.3)
[2017-07-18] MEDS: Morphine 4 MG/ML VIAL IVP PRN ×3 (11:00→21:18)
[2017-07-18] MEDS: Potassium Ch 20mEq in D5-1/2NS 1,000 ML IV SCH ×2 (13:22→18:52)
[2017-07-19] MEDS: Piperacill/Tazo 3.375gm in Dex 3.375 GM/50 ML BAG IVPB SCH ×4 (00:44→19:15)
[2017-07-19] MEDS: Morphine 4 MG/ML VIAL IVP PRN (02:52)
[2017-07-19] MEDS: Potassium Ch 20mEq in D5-1/2NS 1,000 ML IV SCH ×3 (08:43→19:15)
[2017-07-19] MEDS ORDERED: Sodium Chloride 0.9% 1,000 ML IV ONE (08:58)
[2017-07-19 09:16] LABS: HEMATOCRIT 37.6 % (35.0-51.0); MEAN CELL VOLUME 83.8 fL (80.0-94.0); MEAN CORPUSCULAR HEMOGLOBIN 29.7 pg (27.0-31.0); MEAN CORPUSCULAR HGB CONC 35.5 g/dL (33.0-37.0); MEAN PLATELET VOLUME 9.4 fL (7.2-11.7); WHITE BLOOD COUNT 13.2 K/uL (4.8-10.8)
[2017-07-19 09:34] LABS: ALB/GLOB RATIO 1.4 (1.0-2.1); ALKALINE PHOSPHATASE 68 U/L (38-126); ALT/SGPT 51 U/L (21-72); AST/SGOT 30 U/L (17-59); BLOOD UREA NITROGEN 6 mg/dL (9-20); CALCIUM 8.5 mg/dl (8.6-10.4); CARBON DIOXIDE 26 mmol/L (22-30); CHLORIDE 99 mmol/L (98-107); GFR AFRICAN-AMERICAN > 60; GLUCOSE,RANDOM 109 mg/dL (75-110); POTASSIUM 3.6 mmol/L (3.6-5.2); SODIUM 133 mmol/L (132-148); TOTAL PROTEIN 6.3 g/dL (6.3-8.3)
[2017-07-19] MEDS ORDERED: Influenza Vaccine 60 mcg/0.5 mL SYR (4YR UP) IM ONE (10:00)
[2017-07-19] MEDS ORDERED: Pneumococcal 23-Valent Vaccine IM ONE (10:00)
--- NOTE | 2017-07-19 11:00 | CP.PCM.PN ---
<JaimieClaude goss - Last Filed: 07/19/17 10:56> Subjective - Date & Time of Evaluation Date of Evaluation: 07/19/17 Time of Evaluation: 09:00 - Subjective Subjective: Surgery Progress note. Dr. Vega Pt seen and examined at bedside. Pain tolerable with OnQ and prn meds. Denies any Flatus or BM. States that he is hungry and would like to eat. Denies any F/ C. No N/V/D. No new complaints. Objective - Vital Signs/Intake and Output Vital Signs (last 24 hours): Temp Pulse Resp BP Pulse Ox 98.2 F 82 18 103/64 97 07/19/17 08:01 07/19/17 08:01 07/19/17 08:01 07/19/17 08:01 07/19/17 08:01 Intake and Output: 07/19/17 07/19/17 06:59 18:59 Intake Total 1975 Output Total 30 Balance 1945 - Medications Medications: Current Medications BUPIVACAINE 0.125%/0.9% NACL (Bupivacaine-Ns 0.125% On-Q C Programmer) 600 mls @ 4 mls/ hr IJ ONCE ONE Stop: 07/23/17 16:38 Last Admin: 07/17/17 12:20 Dose: 0 mls Piperacillin Sod/Tazobactam Sod (Zosyn 3.375 Gm Iv Premix) 3.375 gm in 50 mls @ 100 mls/hr IVPB Q6H [facility] Last Admin: 07/19/17 06:19 Dose: 100 mls/hr Potassium Chloride/Dextrose/Sod Cl (Potassium Chl 20 Meq In D5-1/2ns) 1,000 mls @ 125 mls/hr IV .Q8H [facility] Last Admin: 07/19/17 08:43 Dose: 125 mls/hr Morphine Sulfate (Morphine) 2 mg IVP Q4 PRN PRN Reason: Pain, severe (8-10) Last Admin: 07/19/17 09:45 Dose: 2 mg Morphine Sulfate (Morphine) 2 mg IVP Q4 PRN PRN Reason: Pain, moderate (4-7) Ondansetron HCl (Zofran Inj) 4 mg IVP Q6 PRN PRN Reason: Nausea/Vomiting - Labs Labs: 07/19/17 09:13 07/19/17 09:13 - Constitutional Appears: Well, Non-toxic, No Acute Distress - Head Exam Head Exam: ATRAUMATIC, NORMAL INSPECTION, NORMOCEPHALIC - Eye Exam Eye Exam: EOMI - ENT Exam ENT Exam: Mucous Membranes Moist - Respiratory Exam Respiratory Exam: NORMAL BREATHING PATTERN. absent: Accessory Muscle Use, Respiratory Distress - Cardiovascular Exam Cardiovascular Exam: absent: JVD - GI/Abdominal Exam GI & Abdominal Exam: Soft Additional comments: Dressings intact. OnQ in place running at 6cc/hr. Soft. Mild tenderness to palpation. No rebound. no guarding. - Extremities Exam Extremities Exam: Normal Inspection. absent: Calf Tenderness - Neurological Exam Neurological Exam: Alert, Awake, Oriented x3 - Psychiatric Exam Psychiatric exam: Normal Affect, Normal Mood - Skin Skin Exam: Dry, Intact, Normal Color, Warm Assessment and Plan - Assessment and Plan (Free Text) Assessment: 36yo M s/p Colostomy reversal 07/17. POD 2 - Continue Abx - NGT discontinued yesterday - Will do trial of liquids today. - Encourage OOBTC and Ambulate - Continue DVT ppx - Pain management Further recs as per Dr. Silvia Etienne PGY1 surgery pager: [phone] <Jeremiah Vega - Last Filed: 07/20/17 09:11> Objective - Vital Signs/Intake and Output Vital Signs (last 24 hours): Temp Pulse Resp BP Pulse Ox 99.1 F 89 20 105/72 96 07/20/17 08:24 07/20/17 08:24 07/20/17 08:24 07/20/17 08:24 07/20/17 08:24 Intake and Output: 07/20/17 07/20/17 06:59 18:59 Intake Total 2118 Output Total 425 Balance 1693 - Medications Medications: Current Medications Piperacillin Sod/Tazobactam Sod (Zosyn 3.375 Gm Iv Premix) 3.375 gm in 50 mls @ 100 mls/hr IVPB Q6H [facility] Last Admin: 07/20/17 07:58 Dose: 100 mls/hr Potassium Chloride/Dextrose/Sod Cl (Potassium Chl 20 Meq In D5-1/2ns) 1,000 mls @ 125 mls/hr IV .Q8H [facility] Last Admin: 07/20/17 06:21 Dose: 125 mls/hr BUPIVACAINE 0.125%/0.9% NACL (Bupivacaine-Ns 0.125% On-Q C Programmer) 600 mls @ 4 mls/ hr IJ ONCE ONE Stop: 07/26/17 14:29 Ketorolac Tromethamine (Toradol) 30 mg IVP Q6 [facility] Stop: 07/22/17 06:01 Morphine Sulfate (Morphine) 2 mg IVP Q4 PRN PRN Reason: Pain, severe (8-10) Last Admin: 07/20/17 07:06 Dose: 2 mg Morphine Sulfate (Morphine) 2 mg IVP Q4 PRN PRN Reason: Pain, moderate (4-7) Ondansetron HCl (Zofran Inj) 4 mg IVP Q6 PRN PRN Reason: Nausea/Vomiting - Labs Labs: 07/19/17 09:13 07/19/17 09:13 Attending/Attestation - Attestation I have personally seen and examined this patient.: Yes I have fully participated in the care of the patient.: Yes I have reviewed all pertinent clinical information, including history, physical exam and plan: Yes Notes (Text): Pt was seen and examined at bedside Agree with above note and assessment OOB to walk Clear liquid diet DVT prophylaxis C/w IV antibiotic Plan d.w pt in detail.
--- NOTE | 2017-07-19 15:44 | OP ---
PROCEDURE DATE: 07/17/2017 PREOPERATIVE DIAGNOSES: 1. Colostomy status. 2. Status post exploratory laparotomy and removal of colonic foreign body. 3. Possible postoperative adhesion. POSTOPERATIVE DIAGNOSES: 1. Colostomy status. 2. Status post exploratory laparotomy and removal of colonic foreign body. 3. Possible postoperative adhesion. PROCEDURES: 1. Colostomy reversal. 2. Partial sigmoid colon resection. 3. Extensive enterolysis with lysis of adhesion. 4. ON-Q pain catheter pump placement. SURGEON: Jeremiah Vega MD ASSISTANTS: Claude Etienne and ANISA Hernandez TYPE OF ANESTHESIA: General endotracheal tube anesthesia. ESTIMATED BLOOD LOSS: Around 100 mL. DRAINS: A 19-Honduran Jaswinder drain was placed. COMPLICATIONS: None. INTRAOPERATIVE FINDINGS: The patient had extensive postoperative adhesions and the patient also had twisting of the proximal sigmoid colon due to adhesion surrounding the colostomy site. DESCRIPTION OF PROCEDURE: On intraoperative steps, this 36-year-old male who was status post colostomy after exploratory laparotomy and removal of colon foreign body and the patient was consented for the colostomy reversal and brought to the OR, placed supine on the operating table. After induction of the anesthesia, the abdomen was prepped and draped in the usual sterile fashion. The colostomy site was sutured and Dermabond was placed and after sterile prep and drape, the elliptical incision was made surrounding the colostomy site and incision was taken down to subcutaneous tissue and fascia. The colostomy site colon was identified and it was dissected from the surrounding fascial attachment and now the fascial incision was extended medially as well as laterally to covert into the small laparotomy as now the extensive lysis of adhesion was done to take all the down from the surrounding small bowel as well as the colon. The sigmoid colon was mobilized after mobilizing the line of Toldt and the sigmoid colon appeared to be twisted and attached to the colostomy site and lysis of adhesion was done. The colostomy site was resected distally with the VIJAY and proximally due to the thinned-out sigmoid colon, the part of the sigmoid colon was resected with colostomy and after mobilizing the sigmoid colon, the end-to-end anastomosis was done with an EEA. There was a good blood supply. There was no tension and there was a good donut proximally as well as distally and the air leak test was done multiple times and it was negative for air leak. After proper anastomosis, the 19-Honduran Jaswinder drain was placed and the vein was closed and the peritoneal cavity was irrigated and the wound was closed in multiple layers. First, rectus muscle was sutured with 0 non-looped PDS interrupted sutures, then #1 looped PDS was used to approximate the fascia and muscles in a single layer and then another interrupted layer of 0 Prolene interrupted sutures and the subcutaneous with 2-0 Vicryl and the skin with robbi and the packing was placed. The ON-Q pain catheter was inserted and it was attached to the pump and Marcaine was injected. The dry sterile dressing was applied. Patient tolerated the procedure well. Count of the instrument and gauze was correct. There was no apparent complication. The patient was extubated in OR and sent to the postanesthesia care unit in stable condition. Jeremiah Vega MD
[2017-07-20] MEDS: Piperacill/Tazo 3.375gm in Dex 3.375 GM/50 ML BAG IVPB SCH ×4 (01:19→18:32)
[2017-07-20] MEDS: Potassium Ch 20mEq in D5-1/2NS 1,000 ML IV SCH ×5 (03:30→17:52)
--- NOTE | 2017-07-20 08:10 | CP.PCM.PN ---
<Abdi Tirado Kimberly - Last Filed: 07/20/17 08:07> Subjective - Date & Time of Evaluation Date of Evaluation: 07/20/17 Time of Evaluation: 06:45 - Subjective Subjective: Gen Sx : Dr Vega Pt S&E. JOSE F. Reports still with pain primarily in LLQ, has not been ambulating much secondary to this. OnQ turned up yesterday, will refill today. Tolerating CLd. Denies N/V, F/C. Denies flatus. using incentive spirometer. Objective - Vital Signs/Intake and Output Vital Signs (last 24 hours): Temp Pulse Resp BP Pulse Ox 98.4 F 100 H 20 103/66 96 07/19/17 23:15 07/19/17 23:15 07/19/17 23:15 07/19/17 23:15 07/19/17 23:15 Intake and Output: 07/20/17 07/20/17 06:59 18:59 Intake Total 2118 Output Total 425 Balance 1693 - Medications Medications: Current Medications BUPIVACAINE 0.125%/0.9% NACL (Bupivacaine-Ns 0.125% On-Q Manager Small Business) 600 mls @ 4 mls/ hr IJ ONCE ONE Stop: 07/23/17 16:38 Last Admin: 07/17/17 12:20 Dose: 0 mls Piperacillin Sod/Tazobactam Sod (Zosyn 3.375 Gm Iv Premix) 3.375 gm in 50 mls @ 100 mls/hr IVPB Q6H [facility] Last Admin: 07/20/17 07:58 Dose: 100 mls/hr Potassium Chloride/Dextrose/Sod Cl (Potassium Chl 20 Meq In D5-1/2ns) 1,000 mls @ 125 mls/hr IV .Q8H [facility] Last Admin: 07/20/17 06:21 Dose: 125 mls/hr BUPIVACAINE 0.125%/0.9% NACL (Bupivacaine-Ns 0.125% On-Q Manager Small Business) 600 mls @ 4 mls/ hr IJ ONCE ONE Stop: 07/26/17 14:29 Ketorolac Tromethamine (Toradol) 30 mg IVP Q6 [facility] Stop: 07/22/17 06:01 Morphine Sulfate (Morphine) 2 mg IVP Q4 PRN PRN Reason: Pain, severe (8-10) Last Admin: 07/20/17 07:06 Dose: 2 mg Morphine Sulfate (Morphine) 2 mg IVP Q4 PRN PRN Reason: Pain, moderate (4-7) Ondansetron HCl (Zofran Inj) 4 mg IVP Q6 PRN PRN Reason: Nausea/Vomiting - Labs Labs: 07/19/17 09:13 07/19/17 09:13 - Constitutional Appears: Non-toxic, No Acute Distress - ENT Exam ENT Exam: Mucous Membranes Moist - Respiratory Exam Respiratory Exam: NORMAL BREATHING PATTERN. absent: Accessory Muscle Use, Respiratory Distress - Cardiovascular Exam Cardiovascular Exam: REGULAR RHYTHM. absent: Tachycardia - GI/Abdominal Exam GI & Abdominal Exam: Soft, Tenderness (LLQ - postop and appropriate). absent: Distended, Firm, Guarding - Extremities Exam Extremities Exam: absent: Pedal Edema - Neurological Exam Neurological Exam: Alert, Awake, Oriented x3 - Psychiatric Exam Psychiatric exam: Normal Affect, Normal Mood - Skin Skin Exam: Normal Color, Warm Assessment and Plan - Assessment and Plan (Free Text) Assessment: 36M POD#3 colostomy reversal Plan: will refill OnQ Toradol Q6H [facility] cont CLD awaiting flatus OOB and ambulate IS use will f/u labs dressing change this afternoon d/w Dr Silvia Tirado, PGY3 <Jeremiah Vega B - Last Filed: 07/20/17 09:12> Objective - Vital Signs/Intake and Output Vital Signs (last 24 hours): Temp Pulse Resp BP Pulse Ox 99.1 F 89 20 105/72 96 07/20/17 08:24 07/20/17 08:24 07/20/17 08:24 07/20/17 08:24 07/20/17 08:24 Intake and Output: 07/20/17 07/20/17 06:59 18:59 Intake Total 2118 Output Total 425 Balance 1693 - Medications Medications: Current Medications Piperacillin Sod/Tazobactam Sod (Zosyn 3.375 Gm Iv Premix) 3.375 gm in 50 mls @ 100 mls/hr IVPB Q6H [facility] Last Admin: 07/20/17 07:58 Dose: 100 mls/hr Potassium Chloride/Dextrose/Sod Cl (Potassium Chl 20 Meq In D5-1/2ns) 1,000 mls @ 125 mls/hr IV .Q8H [facility] Last Admin: 07/20/17 06:21 Dose: 125 mls/hr BUPIVACAINE 0.125%/0.9% NACL (Bupivacaine-Ns 0.125% On-Q Manager Small Business) 600 mls @ 4 mls/ hr IJ ONCE ONE Stop: 07/26/17 14:29 Ketorolac Tromethamine (Toradol) 30 mg IVP Q6 [facility] Stop: 07/22/17 06:01 Morphine Sulfate (Morphine) 2 mg IVP Q4 PRN PRN Reason: Pain, severe (8-10) Last Admin: 07/20/17 07:06 Dose: 2 mg Morphine Sulfate (Morphine) 2 mg IVP Q4 PRN PRN Reason: Pain, moderate (4-7) Ondansetron HCl (Zofran Inj) 4 mg IVP Q6 PRN PRN Reason: Nausea/Vomiting - Labs Labs: 07/19/17 09:13 07/19/17 09:13 Attending/Attestation - Attestation I have personally seen and examined this patient.: Yes I have fully participated in the care of the patient.: Yes I have reviewed all pertinent clinical information, including history, physical exam and plan: Yes Notes (Text): Pt was seen and examined at bedside Agree with above note and assessment OOB to walk Advance to full liquid diet Ensure C/w IV antibiotic Plan d.w pt in detail.
[2017-07-20] MEDS ORDERED: BUPIVACAINE 0.125%/0.9% NACL 600 ML IJ ONE (08:30)
[2017-07-20 12:10] LABS: HEMATOCRIT 37.4 % (35.0-51.0); MEAN CELL VOLUME 82.8 fL (80.0-94.0); MEAN CORPUSCULAR HEMOGLOBIN 29.6 pg (27.0-31.0); MEAN CORPUSCULAR HGB CONC 35.7 g/dL (33.0-37.0); MEAN PLATELET VOLUME 9.1 fL (7.2-11.7); RED CELL DISTRIBUTION WIDTH 12.9 % (11.5-14.5); WHITE BLOOD COUNT 10.7 K/uL (4.8-10.8)
[2017-07-20 12:23] LABS: BLOOD UREA NITROGEN 4 mg/dL (9-20); CALCIUM 8.5 mg/dl (8.6-10.4); CARBON DIOXIDE 26 mmol/L (22-30); CHLORIDE 100 mmol/L (98-107); GFR AFRICAN-AMERICAN > 60; GLUCOSE,RANDOM 104 mg/dL (75-110); POTASSIUM 3.6 mmol/L (3.6-5.2); SODIUM 132 mmol/L (132-148)
[2017-07-21] MEDS: Piperacill/Tazo 3.375gm in Dex 3.375 GM/50 ML BAG IVPB SCH ×4 (00:57→18:48)
[2017-07-21] MEDS: Potassium Ch 20mEq in D5-1/2NS 1,000 ML IV SCH ×6 (02:44→23:14)
[2017-07-21 07:10] LABS: MEAN CELL VOLUME 81.9 fL (80.0-94.0); MEAN CORPUSCULAR HEMOGLOBIN 30.2 pg (27.0-31.0); MEAN CORPUSCULAR HGB CONC 36.9 g/dL (33.0-37.0); MEAN PLATELET VOLUME 9.5 fL (7.2-11.7); RED CELL DISTRIBUTION WIDTH 12.8 % (11.5-14.5); WHITE BLOOD COUNT 8.9 K/uL (4.8-10.8)
--- NOTE | 2017-07-21 08:00 | CP.PCM.PN ---
<JaimieClaude - Last Filed: 07/21/17 08:56> Subjective - Date & Time of Evaluation Date of Evaluation: 07/21/17 Time of Evaluation: 06:50 - Subjective Subjective: Surgery Progress note. Dr. Vega Pt seen and examined at bedside. No acute events overnight. Patient reports nausea with 1 episode of vomiting this morning. NGT offered, however patient refused at this time. Still w/ abd pain. No F/C. Does report a small BM overnight. Objective - Vital Signs/Intake and Output Vital Signs (last 24 hours): Temp Pulse Resp BP Pulse Ox 98.3 F 79 20 106/74 98 07/20/17 23:15 07/20/17 23:15 07/20/17 23:15 07/20/17 23:15 07/20/17 23:15 Intake and Output: 07/21/17 07/21/17 06:59 18:59 Intake Total 1000 Output Total 16 Balance 984 - Medications Medications: Current Medications Piperacillin Sod/Tazobactam Sod (Zosyn 3.375 Gm Iv Premix) 3.375 gm in 50 mls @ 100 mls/hr IVPB Q6H [facility] Last Admin: 07/21/17 06:46 Dose: 100 mls/hr Potassium Chloride/Dextrose/Sod Cl (Potassium Chl 20 Meq In D5-1/2ns) 1,000 mls @ 125 mls/hr IV .Q8H [facility] Last Admin: 07/21/17 03:28 Dose: Not Given BUPIVACAINE 0.125%/0.9% NACL (Bupivacaine-Ns 0.125% On-Q Accordion Maker) 600 mls @ 4 mls/ hr IJ ONCE ONE Stop: 07/26/17 14:29 Ketorolac Tromethamine (Toradol) 30 mg IVP Q6 [facility]O Stop: 07/22/17 06:01 Last Admin: 07/21/17 06:42 Dose: 30 mg Morphine Sulfate (Morphine) 2 mg IVP Q4 PRN PRN Reason: Pain, severe (8-10) Last Admin: 07/20/17 22:58 Dose: 2 mg Morphine Sulfate (Morphine) 2 mg IVP Q4 PRN PRN Reason: Pain, moderate (4-7) Ondansetron HCl (Zofran Inj) 4 mg IVP Q6 PRN PRN Reason: Nausea/Vomiting Last Admin: 07/21/17 05:29 Dose: 4 mg - Labs Labs: 07/21/17 06:25 07/20/17 12:03 - Constitutional Appears: Non-toxic, No Acute Distress - Head Exam Head Exam: ATRAUMATIC, NORMAL INSPECTION, NORMOCEPHALIC - Eye Exam Eye Exam: EOMI - ENT Exam ENT Exam: Mucous Membranes Moist - Respiratory Exam Respiratory Exam: NORMAL BREATHING PATTERN. absent: Accessory Muscle Use, Respiratory Distress - Cardiovascular Exam Cardiovascular Exam: absent: JVD - GI/Abdominal Exam GI & Abdominal Exam: Distended. absent: Rebound Additional comments: tender to palpation cesar-incisional. - Extremities Exam Extremities Exam: Normal Inspection. absent: Calf Tenderness - Neurological Exam Neurological Exam: Alert, Awake, Oriented x3 - Skin Skin Exam: Dry, Intact, Normal Color, Warm Assessment and Plan - Assessment and Plan (Free Text) Assessment: 36yo M POD 4 colostomy reversal - Pain management - NPO due n/v. Will consider NGT if he continues to vomit - f/u CT Abd/Pelvis PO Contrast as ordered - f/u AM labs - Encourage OOB to chair, Ambulate Further recs as per Dr. Silvia Etienne PGY1 surgery pager: [phone] <Jeremiah Vega - Last Filed: 07/21/17 13:20> Objective - Vital Signs/Intake and Output Vital Signs (last 24 hours): Temp Pulse Resp BP Pulse Ox 98.3 F 79 20 119/77 97 07/21/17 08:28 07/21/17 08:28 07/21/17 08:28 07/21/17 08:28 07/21/17 08:28 Intake and Output: 07/21/17 07/21/17 06:59 18:59 Intake Total 1000 Output Total 16 Balance 984 - Medications Medications: Current Medications Piperacillin Sod/Tazobactam Sod (Zosyn 3.375 Gm Iv Premix) 3.375 gm in 50 mls @ 100 mls/hr IVPB Q6H [facility] Last Admin: 07/21/17 12:32 Dose: 100 mls/hr Potassium Chloride/Dextrose/Sod Cl (Potassium Chl 20 Meq In D5-1/2ns) 1,000 mls @ 125 mls/hr IV .Q8H [facility] Last Admin: 07/21/17 12:33 Dose: 125 mls/hr BUPIVACAINE 0.125%/0.9% NACL (Bupivacaine-Ns 0.125% On-Q Accordion Maker) 600 mls @ 4 mls/ hr IJ ONCE ONE Stop: 07/26/17 14:29 Ketorolac Tromethamine (Toradol) 30 mg IVP Q6 SOLO Stop: 07/22/17 06:01 Last Admin: 07/21/17 13:03 Dose: 30 mg Morphine Sulfate (Morphine) 2 mg IVP Q4 PRN PRN Reason: Pain, severe (8-10) Last Admin: 07/20/17 22:58 Dose: 2 mg Morphine Sulfate (Morphine) 2 mg IVP Q4 PRN PRN Reason: Pain, moderate (4-7) Ondansetron HCl (Zofran Inj) 4 mg IVP Q6 PRN PRN Reason: Nausea/Vomiting Last Admin: 07/21/17 05:29 Dose: 4 mg - Labs Labs: 07/21/17 06:25 07/21/17 06:25 Attending/Attestation - Attestation I have personally seen and examined this patient.: Yes I have fully participated in the care of the patient.: Yes I have reviewed all pertinent clinical information, including history, physical exam and plan: Yes Notes (Text): Pt was seen and examined at bedside Agree with above note and assessment Pt had vomiting after toradol injection today Pt is passing gas and had bowel movement Abdomen: soft, mildly distended Get CT s can of A/P with Po and IV contrast If CT scan is normal, Advance diet to soft diet OOB to walk C.w current mx Plan d.w pt in detail.
[2017-07-21 08:22] LABS: BLOOD UREA NITROGEN 6 mg/dL (9-20); CALCIUM 8.3 mg/dl (8.6-10.4); CARBON DIOXIDE 25 mmol/L (22-30); CHLORIDE 101 mmol/L (98-107); GFR AFRICAN-AMERICAN > 60; GLUCOSE,RANDOM 126 mg/dL (75-110); POTASSIUM 3.6 mmol/L (3.6-5.2); SODIUM 132 mmol/L (132-148)
[2017-07-21] MEDS ORDERED: Iohexol 240 (50 ml) PO ONE (09:50)
[2017-07-21] MEDS ORDERED: Iodixanol 320 MG/ML 100 ML BOTTLE IV ONE (13:11)
--- NOTE | 2017-07-21 15:06 | CT ---
PROCEDURE: CT Abdomen and Pelvis with contrast HISTORY: r/o leak/abscess Four days status post reversal of colostomy COMPARISON: None. TECHNIQUE: Contrast dose: 100 mL Visipaque 320 Radiation dose: Total exam DLP = 295.48 mGy-cm. This CT exam was performed using one or more of the following dose reduction techniques: Automated exposure control, adjustment of the mA and/or kV according to patient size, and/or use of iterative reconstruction technique. FINDINGS: LOWER THORAX: Right lower lobe consolidation. Infiltrate versus atelectasis. Trace left pleural effusion. LIVER: Normal size, contour and attenuation. No mass. No biliary dilatation. GALLBLADDER AND BILE DUCTS: Unremarkable. PANCREAS: Unremarkable. No gross lesion or ductal dilatation. SPLEEN: Unremarkable. ADRENALS: Unremarkable. No mass. KIDNEYS AND URETERS: Unremarkable. No hydronephrosis. No solid mass. VASCULATURE: Unremarkable. No aortic aneurysm. BOWEL: Status post anastomosis at rectosigmoid junction. Anastomotic sutures are visualized. There are surgical robbi over the left lower quadrant of the abdomen with subcutaneous gas extending to the left inguinal region, as well as a small amount of gas within the abdominal wall musculature. No free intraperitoneal air. No oral contrast within the peritoneal cavity to suggest bowel perforation. There is mural thickening of loops of small bowel in the pelvis and adjacent to the anastomosis at the rectosigmoid junction. There is mild dilatation of small bowel proximal to this thick walled small bowel. There is oral contrast seen throughout the small bowel and in the colon. There is no evidence of complete mechanical small bowel obstruction. The small bowel mural thickening is nonspecific. Mild dilatation of proximal small bowel may reflect an ileus. APPENDIX: Normal appendix. PERITONEUM: Unremarkable. No free fluid. No free air. There is a surgical drainage catheter seen inserted at left parasagittal lower anterior abdominal wall, extending to the left upper quadrant of the abdomen. LYMPH NODES: Unremarkable. No enlarged lymph nodes. BLADDER: Poorly distended. REPRODUCTIVE: Unremarkable prostate. BONES: No acute fracture. OTHER FINDINGS: None. IMPRESSION: No evidence of bowel perforation. Mural thickening of loops of small bowel in the pelvis and lower abdomen with mild dilatation of small bowel proximal but passage of oral contrast through the small bowel into the colon, suggesting that there is no complete mechanical small-bowel obstruction at this time. Mural thickening is nonspecific finding and may reflect postoperative change or an enteritis. Subcutaneous gas in left lower abdominal wall extending to left inguinal region, consistent with recent laparotomy. No other significant abnormality identified.
[2017-07-22] MEDS: Piperacill/Tazo 3.375gm in Dex 3.375 GM/50 ML BAG IVPB SCH ×4 (00:48→18:51)
[2017-07-22 01:39] VITALS: RESP 20
[2017-07-22] MEDS: Potassium Ch 20mEq in D5-1/2NS 1,000 ML IV SCH ×3 (03:30→12:21)
--- NOTE | 2017-07-22 06:37 | CP.PCM.PN ---
Subjective - Date & Time of Evaluation Date of Evaluation: 07/22/17 Time of Evaluation: 06:37 - Subjective Subjective: General Surgery Dr. Vega Pt S&E @bedside. JOSE F. Pt c/o abd pain; states it feels empty. Denies F/C, N/V. tolerating FLD diet. Jaswinder output 35cc x24hrs Objective - Vital Signs/Intake and Output Vital Signs (last 24 hours): Temp Pulse Resp BP Pulse Ox 98.5 F 65 20 103/66 96 07/21/17 23:15 07/21/17 23:15 07/21/17 23:15 07/21/17 23:15 07/21/17 23:15 Intake and Output: 07/21/17 07/22/17 18:59 06:59 Intake Total 1455 2640 Output Total 5 630 Balance 1450 2009 - Medications Medications: Current Medications Piperacillin Sod/Tazobactam Sod (Zosyn 3.375 Gm Iv Premix) 3.375 gm in 50 mls @ 100 mls/hr IVPB Q6H [facility] Last Admin: 07/22/17 06:06 Dose: 100 mls/hr Potassium Chloride/Dextrose/Sod Cl (Potassium Chl 20 Meq In D5-1/2ns) 1,000 mls @ 125 mls/hr IV .Q8H [facility] Last Admin: 07/22/17 03:30 Dose: Not Given BUPIVACAINE 0.125%/0.9% NACL (Bupivacaine-Ns 0.125% On-Q [employer] Teacher) 600 mls @ 4 mls/ hr IJ ONCE ONE Stop: 07/26/17 14:29 Morphine Sulfate (Morphine) 2 mg IVP Q4 PRN PRN Reason: Pain, severe (8-10) Last Admin: 07/20/17 22:58 Dose: 2 mg Morphine Sulfate (Morphine) 2 mg IVP Q4 PRN PRN Reason: Pain, moderate (4-7) Ondansetron HCl (Zofran Inj) 4 mg IVP Q6 PRN PRN Reason: Nausea/Vomiting Last Admin: 07/21/17 05:29 Dose: 4 mg - Labs Labs: 07/21/17 06:25 07/21/17 06:25 - Constitutional Appears: Non-toxic, No Acute Distress - Head Exam Head Exam: NORMAL INSPECTION - Eye Exam Eye Exam: Normal appearance - ENT Exam ENT Exam: Mucous Membranes Moist - Respiratory Exam Respiratory Exam: NORMAL BREATHING PATTERN. absent: Accessory Muscle Use, Respiratory Distress - Cardiovascular Exam Cardiovascular Exam: absent: Bradycardia, Tachycardia - GI/Abdominal Exam GI & Abdominal Exam: Soft, Tenderness (appropriate cesar-incisonal TTP). absent : Distended, Firm, Guarding, Rigid, Rebound Additional comments: dressing c/d/i jaswinder present w/ scant serosanguinous drainage - Extremities Exam Extremities Exam: Normal Inspection - Neurological Exam Neurological Exam: Alert, Awake, Oriented x3 - Psychiatric Exam Psychiatric exam: Normal Affect, Normal Mood - Skin Skin Exam: Dry, Normal Color, Warm Assessment and Plan - Assessment and Plan (Free Text) Assessment: 36 y/o M POD#5 s/p Rosa's Reversal - ADAT - d/c IV pain meds - start Percocet PO Q4 - monitor drain output - possible discharge today pending food tolerance and pain control - encourage OOB to chair/Amb/IS use Pt discussed w/ Dr. Silvia Monsivais DO PGY2
[2017-07-22] MEDS ORDERED: Oxycodone/Acetaminophen 5/325 mg Tab PO PRN (06:49)
[2017-07-22 16:08] VITALS: BP 99/62; PULSE 61; TEMP 97.8; O2SAT 99
--- NOTE | 2017-07-22 16:46 | CP.PCM.DIS ---
Provider - Provider Date of Admission: 07/17/17 06:11 Attending physician: Jeremiah Vega MD Primary care physician: None- admitted to general surgery - Dr. Vega Consults: None Time Spent in preparation of Discharge (in minutes): 35 Diagnosis - Discharge Diagnosis (1) History of colostomy reversal Status: Acute Hospital Course - Lab Results Lab Results: Most Recent Lab Values WBC 8.9 K/uL (4.8-10.8) 07/21/17 06:25 RBC 4.40 Mil/uL (4.40-5.90) 07/21/17 06:25 Hgb 13.3 g/dL (12.0-18.0) 07/21/17 06:25 Hct 36.0 % (35.0-51.0) 07/21/17 06:25 MCV 81.9 fL (80.0-94.0) 07/21/17 06:25 MCH 30.2 pg (27.0-31.0) 07/21/17 06:25 MCHC 36.9 g/dL (33.0-37.0) 07/21/17 06:25 RDW 12.8 % (11.5-14.5) 07/21/17 06:25 Plt Count 278 K/uL (130-400) 07/21/17 06:25 MPV 9.5 fL (7.2-11.7) 07/21/17 06:25 Sodium 132 mmol/L (132-148) 07/21/17 06:25 Potassium 3.6 mmol/L (3.6-5.2) 07/21/17 06:25 Chloride 101 mmol/L (98-107) 07/21/17 06:25 Carbon Dioxide 25 mmol/L (22-30) 07/21/17 06:25 Anion Gap 10 (10-20) 07/21/17 06:25 BUN 6 mg/dL (9-20) L 07/21/17 06:25 Creatinine 0.6 mg/dL (0.8-1.5) L 07/21/17 06:25 Est GFR ( Amer) > 60 07/21/17 06:25 Est GFR (Non-Af Amer) > 60 07/21/17 06:25 POC Glucose (mg/dL) 141 mg/dL (65-110) H 12/18/17 21:56 Random Glucose 126 mg/dL (75-110) H 07/21/17 06:25 Calcium 8.3 mg/dl (8.6-10.4) L 07/21/17 06:25 Total Bilirubin 1.0 mg/dL (0.2-1.3) 07/19/17 09:13 AST 30 U/L (17-59) 07/19/17 09:13 ALT 51 U/L (21-72) 07/19/17 09:13 Alkaline Phosphatase 68 U/L (38-126) 07/19/17 09:13 Total Protein 6.3 g/dL (6.3-8.3) 07/19/17 09:13 Albumin 3.7 g/dL (3.5-5.0) 07/19/17 09:13 Globulin 2.6 gm/dL (2.2-3.9) 07/19/17 09:13 Albumin/Globulin Ratio 1.4 (1.0-2.1) 07/19/17 09:13 - Hospital Course Hospital Course: 36M w/PMH sig for inserting foreign bodies into rectum admitted to surgical service for Rosa's colostomy reversal with end-to-end anastomosis and OnQ placement for local anesthesia, performed on hospital day 1. Pt tolerated procedure well. NG tube was placed intra-operatively and discontinued post op, bowel function was monitored. Post op day 2-3 patient reported hunger- trial of liquids (clear than fulls) initiated. Post op day 4 pt had both 1 episode of emesis and [address] of abdomen was obrained, no pertinent findings. Patient was then advanced to a soft diet and encouraged to ambulate. Post op day 5 patient is tolerating a diet, pain is controlled with medications. Jaswinder drain was removed, OnQ was removed. Patient is stable, ready for discharge home with prescriptions for pain medication in chart and instructions to follow up in ED for wound check on July 27, 2017. Post op home instructions are in discharge plan. Diagnoses: s/p colostomy reversal Discharge Exam - Head Exam Head Exam: NORMAL INSPECTION - Eye Exam Eye Exam: EOMI, Normal appearance - ENT Exam ENT Exam: Mucous Membranes Moist, Normal Exam - Neck Exam Neck exam: Full Rom, Normal Inspection - Respiratory Exam Respiratory Exam: NORMAL BREATHING PATTERN, UNREMARKABLE - Cardiovascular Exam Cardiovascular Exam: REGULAR RHYTHM, +S1, +S2 - GI/Abdominal Exam GI & Abdominal Exam: Soft, Tenderness. absent: Distended Additional comments: Jaswinder drain removed On-Q removed Abdominal dressing in place- Clean/dry/intact - Extremities Exam Extremities exam: normal inspection - Neurological Exam Neurological exam: Alert, CN II-XII Intact, Oriented x3 - Psychiatric Exam Psychiatric exam: Normal Affect, Normal Mood - Skin Skin Exam: Dry, Intact, Normal Color, Warm Discharge Plan - Discharge Medications Prescriptions: Docusate [Colace] 100 mg PO BID #30 cap oxyCODONE/Acetaminophen [Percocet 5/325 mg Tab] 1 ea PO Q4 PRN #20 tab PRN Reason: Pain, Moderate (4-7) - Follow Up Plan Condition: GOOD Disposition: HOME/ ROUTINE Instructions: Open Colostomy Reversal (DC), Staple Care (DC), Care For Your Absorbable Stitches (DC) Additional Instructions: Patient is to return to the ED on 07/27/17 for wound check Patient is to see Dr. Vega in clinic on August 01, 2017. Patient should call to make an appointment Take all medication as prescribed No heavy lifting for 4weeks (nothing heavier than a jug of milk) Patient may shower tomorrow, however do not soak or scrub incisions Change bandage after shower No pools, tubs, or bath Return to the ED if Fever >100.4, pain, redness, swelling of incision Referrals: Jeremiah Vega MD [Staff Provider] -
== END 2017-07-22 21:05 | disposition home or self-care (01) | DRG 148 ==
LOC: C.9S 07-17 06:11 → C.6T 07-17 21:42
PROVIDERS: ADMIT Surgery Surgical Critical Care; ATTEND Surgery Surgical Critical Care
PROC: 0DNE0ZZ Release Large Intestine, Open Approach (ICD-10-PCS; 2017-07-17)
PROC: 0DN80ZZ Release Small Intestine, Open Approach (ICD-10-PCS; 2017-07-17)
PROC: 0DTN0ZZ Resection of Sigmoid Colon, Open Approach (ICD-10-PCS; 2017-07-17)
PROC: 0DBN0ZZ Excision of Sigmoid Colon, Open Approach (ICD-10-PCS; principal; 2017-07-17 07:30)
DX: Z43.3 Encounter for attention to colostomy (principal); R44.3 Hallucinations, unspecified; F17.200 Nicotine dependence, unspecified, uncomplicated; K66.0 Peritoneal adhesions (postprocedural) (postinfection); T40.2X5A Adverse effect of other opioids, initial encounter; Y92.230 Patient room in hospital as the place of occurrence of the external cause; R11.2 Nausea with vomiting, unspecified; Z88.5 Allergy status to narcotic agent; Z79.899 Other long term (current) drug therapy

== ENCOUNTER 2017-07-27 12:31 | Emergency (ER) | payer OTHER ==
[2017-07-27 12:31] VITALS: BMI 21.9
[2017-07-27 12:56] VITALS: TEMP 97.7
--- NOTE | 2017-07-27 13:41 | C.PDOC ---
History Of Present Illness 36 yr old male presents to the ER for wound check. Patient had surgery by Dr. Vega on 05/24. Patient reports he feels better and has minimal pain. Denies fever, chills, nausea, vomiting, abdominal pain, constipation, weakness or numbness. Time Seen by Provider: 07/27/17 13:25 Chief Complaint (Nursing): Wound Check History Per: Patient History/Exam Limitations: no limitations Onset/Duration Of Symptoms: Days Ago Past Medical History Reviewed: Historical Data, Nursing Documentation, Vital Signs Vital Signs: Last Vital Signs Temp 97.7 F 07/27/17 14:01 Pulse 65 07/27/17 14:01 Resp 14 07/27/17 14:01 BP 96/65 L 07/27/17 14:01 Pulse Ox 97 07/27/17 14:18 - Medical History PMH: Fractures (Nasal) - [facility] Procedures BYPASS SIGMOID COLON TO CUTANEOUS, OPEN APPROACH (05/24/17) EXCISION OF SIGMOID COLON, OPEN APPROACH (07/17/17) EXTIRPATION OF MATTER FROM SIGMOID COLON, OPEN APPROACH (05/24/17) RELEASE LARGE INTESTINE, OPEN APPROACH (07/17/17) RELEASE SMALL INTESTINE, OPEN APPROACH (07/17/17) RESECTION OF SIGMOID COLON, OPEN APPROACH (07/17/17) Family History: States: No Known Family Hx - Social History Hx Alcohol Use: Yes Hx Substance Use: No - Immunization History Hx Tetanus Toxoid Vaccination: No Hx Influenza Vaccination: No Hx Pneumococcal Vaccination: No Review Of Systems Except As Marked, All Systems Reviewed And Found Negative. Constitutional: Negative for: Fever, Chills Gastrointestinal: Negative for: Nausea, Vomiting, Abdominal Pain, Constipation Neurological: Negative for: Weakness, Numbness Physical Exam - Physical Exam Appears: Non-toxic, No Acute Distress Skin: Warm, Dry, No Rash Head: Atraumatic, Normacephalic Eye(s): bilateral: Normal Inspection Oral Mucosa: Moist Neck: Normal ROM Cardiovascular: Rhythm Regular Respiratory: Normal Breath Sounds Gastrointestinal/Abdominal: Normal Exam, Bowel Sounds (Active), Soft, No Tenderness, No Guarding, No Rebound, Other ((+) Well healed wound to LLQ with robbi intact. No erythema. No tenderness. No fluctuance.) Back: Normal Inspection, No CVA Tenderness Extremity: Normal ROM, No Swelling Neurological/Psych: Oriented x3, Normal Speech, Normal Motor, Normal Sensation Gait: Steady ED Course And Treatment O2 Sat by Pulse Oximetry: 97 (RA) Pulse Ox Interpretation: Normal Medical Decision Making Medical Decision Making: NOTE: * 1335: Dr. Vega was contacted and was informed he is away. * 1338: residential building inspector was informed regarding the patient, will come see the patient. * [place] removed by surgical residents. Wound is redressed. * Patient to follow up in Dr. Vega in 1-2 days. Disposition - Disposition Referrals: Jeremiah Vega MD [Staff Provider] - Disposition: HOME/ ROUTINE Disposition Time: 13:45 Condition: GOOD Additional Instructions: Follow up with the Dr. Soares within 1-2 days without fail, Return if worsened. Instructions: Acute Wound Care (ED) Forms: [employer] (Swedish) - Clinical Impression Clinical Impression: Visit for wound check, Removal of staple - PA / [employer] SUPERVISOR / Resident Statement MD/DO has reviewed & agrees with the documentation as recorded. - Scribe Statement The provider has reviewed the documentation as recorded by the Scribe Kristen Coelho All medical record entries made by the Scribe were at my direction and personally dictated by me. I have reviewed the chart and agree that the record accurately reflects my personal performance of the history, physical exam, medical decision making, and the department course for this patient. I have also personally directed, reviewed, and agree with the discharge instructions and disposition.
[2017-07-27 14:02] VITALS: BP 96/65; PULSE 65; RESP 14
[2017-07-27 14:16] VITALS: O2SAT 97
== END 2017-07-27 14:15 | disposition home or self-care (01) ==
LOC: C.ER 12:31
DX: Z48.02 Encounter for removal of sutures (principal); Z51.89 Encounter for other specified aftercare

== ENCOUNTER 2017-10-20 13:38 | Emergency (ER) | payer OTHER ==
[2017-10-20 13:39] VITALS: BMI 21.9
[2017-10-20 13:45] VITALS: O2SAT 98
[2017-10-20 14:52] LABS: BASO # 0.1 K/uL (0.0-0.2); BASO % 0.9 % (0.0-2.0); EOS # 0.7 K/uL (0.0-0.7); EOS % 13.1 % (0.0-4.0); HEMOGLOBIN 16.7 g/dL (12.0-18.0); LYMPH # 1.7 K/uL (1.0-4.3); LYMPH % 30.6 % (20.0-40.0); MEAN CELL VOLUME 84.3 fL (80.0-94.0); MEAN CORPUSCULAR HEMOGLOBIN 29.3 pg (27.0-31.0); MEAN CORPUSCULAR HGB CONC 34.7 g/dL (33.0-37.0); MEAN PLATELET VOLUME 9.5 fL (7.2-11.7); MONO # 0.4 K/uL (0.0-0.8); MONO % 6.6 % (0.0-10.0); NEUT # 2.7 K/uL (1.8-7.0); NEUT % 48.8 % (50.0-75.0); NRBC % 0.2 % (0.0-2.0); RBC 5.72 Mil/uL (4.40-5.90); RED CELL DISTRIBUTION WIDTH 13.8 % (11.5-14.5); WHITE BLOOD COUNT 5.5 K/uL (4.8-10.8)
[2017-10-20 14:54] LABS: ALB/GLOB RATIO 1.1 (1.0-2.1); ALBUMIN 4.4 g/dL (3.5-5.0); ALT/SGPT 41 U/L (21-72); AST/SGOT 30 U/L (17-59); BLOOD UREA NITROGEN 11 mg/dL (9-20); CALCIUM 9.3 mg/dl (8.6-10.4); GFR AFRICAN-AMERICAN > 60; GFR NON-AFRICAN AMERICAN > 60; LIPASE 139 U/L (23-300)
[2017-10-20] MEDS ORDERED: Morphine 4 MG/ML VIAL ONE (14:56)
[2017-10-20] MEDS ORDERED: Iohexol 240 (50 ml) PO STA (15:14)
[2017-10-20] MEDS ORDERED: Iohexol 240 (50 ml) ONE (15:18)
--- NOTE | 2017-10-20 15:20 | RAD ---
PROCEDURE: CHEST RADIOGRAPH, 1 VIEW HISTORY: abd pain COMPARISON: None available. FINDINGS: LUNGS: Clear. PLEURA: No pneumothorax or pleural fluid seen. CARDIOVASCULAR: Normal. OSSEOUS STRUCTURES: No significant abnormalities. VISUALIZED UPPER ABDOMEN: Normal. OTHER FINDINGS: None. IMPRESSION: No focal airspace opacity.
--- NOTE | 2017-10-20 15:33 | C.PDOC ---
History Of Present Illness 37 year old male presents to the ED with c/o left lower quadrant which occasionally radiates to right quadrant for the past 3 days. Patient underwent surgical reversal of his colostomy on 07/18/2017. Patient reports he had a normal bowel movement today. Denies fever, chills, vomiting, diarrhea, bloody stool. Time Seen by Provider: 10/20/17 14:13 Chief Complaint (Nursing): Abdominal Pain History Per: Patient History/Exam Limitations: no limitations Onset/Duration Of Symptoms: Days (3) Current Symptoms Are (Timing): Still Present Location Of Pain/Discomfort: LLQ Quality Of Discomfort: "Pain" Associated Symptoms: denies: Fever, Chills, Nausea, Vomiting, Diarrhea Last Bowel Movement: Today Additional History Per: Patient Past Medical History Reviewed: Historical Data, Nursing Documentation, Vital Signs Vital Signs: Last Vital Signs Temp 98.2 F 10/20/17 19:01 Pulse 75 10/20/17 19:01 Resp 18 10/20/17 19:01 BP 116/75 10/20/17 19:01 Pulse Ox 98 10/21/17 12:35 - Medical History PMH: Fractures (Nasal) Denies: Chronic Kidney Disease Surgical History: No Surg Hx - [facility] Procedures BYPASS SIGMOID COLON TO CUTANEOUS, OPEN APPROACH (05/24/17) EXCISION OF SIGMOID COLON, OPEN APPROACH (07/17/17) EXTIRPATION OF MATTER FROM SIGMOID COLON, OPEN APPROACH (05/24/17) RELEASE LARGE INTESTINE, OPEN APPROACH (07/17/17) RELEASE SMALL INTESTINE, OPEN APPROACH (07/17/17) RESECTION OF SIGMOID COLON, OPEN APPROACH (07/17/17) Family History: States: Unknown Family Hx - Social History Hx Alcohol Use: Yes Hx Substance Use: No - Immunization History Hx Tetanus Toxoid Vaccination: No Hx Influenza Vaccination: No Hx Pneumococcal Vaccination: No Review Of Systems Constitutional: Negative for: Fever, Chills Gastrointestinal: Positive for: Abdominal Pain. Negative for: Nausea, Vomiting , Diarrhea, Hematochezia Physical Exam - Physical Exam Appears: Non-toxic, No Acute Distress Skin: Normal Color, Warm, Dry Head: Atraumatic, Normacephalic Eye(s): bilateral: Normal Inspection Oral Mucosa: Moist Neck: Supple Chest: Symmetrical, No Deformity, No Tenderness Cardiovascular: Rhythm Regular, No Murmur Respiratory: Normal Breath Sounds, No Rales, No Rhonchi, No Wheezing Gastrointestinal/Abdominal: Soft, Tenderness (mild, to left lower quadrant ), Guarding, No Rebound, No Hernia (palpable ), Other (scar to mid-abdomen and left lower quadrant ) Extremity: Normal ROM, Capillary Refill (less than 2 seconds ) Neurological/Psych: Oriented x3, Normal Speech, Normal Cognition ED Course And Treatment - Laboratory Results Result Diagrams: 10/20/17 14:37 10/20/17 14:37 O2 Sat by Pulse Oximetry: 98 (on RA ) - Other Rad CXR X-Ray: Interpreted by Me, Viewed By Me, Read By Radiologist Interpretation: PROCEDURE: CHEST RADIOGRAPH, 1 VIEW. HISTORY: abd pain. COMPARISON: None available. FINDINGS: LUNGS: Clear. PLEURA: No pneumothorax or pleural fluid seen. CARDIOVASCULAR: Normal. OSSEOUS STRUCTURES: No significant abnormalities. VISUALIZED UPPER ABDOMEN: Normal. OTHER FINDINGS: None. IMPRESSION: No focal airspace opacity. Medical Decision Making Medical Decision Making: Progress: Bloodwork, CXR, CT A/P ordered and reviewed. Morphine IVP and Zofran IVP administered. On re-exam, the patient reports improvement of symptoms. Lungs are CTA, heart is RRR, abdomen is soft, non-tender and tolerating Po well. Ambulatory in the ED with steady gait. Follow up with the medical doctor/clinic within 1-2 days without fail. Return if worsened. Disposition - Disposition Referrals: Jeremiah Vega MD [Staff Provider] - Disposition: HOME/ ROUTINE Disposition Time: 18:28 Condition: FAIR Additional Instructions: Follow up with the medical doctor/clinic within 1-2 days without fail. Return if worsened. Prescriptions: Famotidine [Pepcid] 20 mg PO BID #20 tab Ibuprofen [Motrin] 1 tab PO TID PRN #30 tab PRN Reason: Pain Instructions: Acute Abdomen (Belly Pain), Adult (DC) Forms: [employer] (Mongolian) - Clinical Impression Clinical Impression: Abdominal pain - PA / MEDICAL REVIEWER / Resident Statement MD/DO has reviewed & agrees with the documentation as recorded. - Scribe Statement The provider has reviewed the documentation as recorded by the Scribe (Catalina Tran) All medical record entries made by the Scribe were at my direction and personally dictated by me. I have reviewed the chart and agree that the record accurately reflects my personal performance of the history, physical exam, medical decision making, and the department course for this patient. I have also personally directed, reviewed, and agree with the discharge instructions and disposition.
[2017-10-20] MEDS ORDERED: Iodixanol 320 MG/ML 100 ML BOTTLE IV ONE (16:06)
--- NOTE | 2017-10-20 18:19 | CT ---
PROCEDURE: CT Abdomen and Pelvis with contrast HISTORY: abd pain COMPARISON: 07/21/2017 TECHNIQUE: Contrast dose: 100 mL Visipaque 320 Radiation dose: Total exam DLP = 346.74 mGy-cm. This CT exam was performed using one or more of the following dose reduction techniques: Automated exposure control, adjustment of the mA and/or kV according to patient size, and/or use of iterative reconstruction technique. FINDINGS: LOWER THORAX: Unremarkable. LIVER: Unremarkable. No gross lesion or ductal dilatation. GALLBLADDER AND BILE DUCTS: Unremarkable. PANCREAS: Unremarkable. No gross lesion or ductal dilatation. SPLEEN: Unremarkable. ADRENALS: Unremarkable. No mass. KIDNEYS AND URETERS: Unremarkable. No hydronephrosis. No solid mass. VASCULATURE: Unremarkable. No aortic aneurysm. BOWEL: Evidence of prior sigmoidectomy with left lower quadrant colonic anastomosis. No bowel obstruction. No other abnormal bowel loops. APPENDIX: Normal appendix. PERITONEUM: Unremarkable. No free fluid. No free air. LYMPH NODES: Unremarkable. No enlarged lymph nodes. BLADDER: Nondistended REPRODUCTIVE: Unremarkable prostate. Please note, however, that there is prominence of the left seminal vesicle. In retrospect, this is unchanged from prior examination of 07/21/2017. Nonemergent urologic consultation suggested. BONES: No acute fracture. OTHER FINDINGS: None. IMPRESSION: No acute abnormality. Chronically enlarged left seminal vesicle, uncertain significance. Prior sigmoidectomy with colonic anastomosis. No other significant abnormality.
[2017-10-20 19:02] VITALS: BP 116/75; PULSE 75; RESP 18; TEMP 98.2
== END 2017-10-20 19:01 | disposition home or self-care (01) ==
LOC: C.ER 13:38
DX: R10.9 Unspecified abdominal pain (principal)
CPT/HCPCS: 71045; 74177; 80053; 83690; 85025; 96374; 99284; J2270; Q9966; Q9967